=== PATIENT | female | born 2000 | race Caucasian/White ===

== ENCOUNTER 2023-02-06 12:59 | Emergency (ER) | payer BC, SELFPAY ==
[2023-02-06 13:08] VITALS: BP 132/77; PULSE 85; RESP 16; TEMP 37.1; O2SAT 95; BMI 34.8
[2023-02-06 13:26] LABS: Bilirubin Urine NEGATIVE (NEGATIVE); Blood Urine LARGE (NEGATIVE); Clarity Urine CLOUDY (CLEAR); Color Urine YELLOW (YELLOW); Glucose Urine UA NEGATIVE (NEGATIVE); Ketones Urine NEGATIVE (NEGATIVE); Leukocyte Esterase Urine MODERATE (NEGATIVE); Nitrite Urine POSITIVE (NEGATIVE); Protein Urine >=300 mg/dL (NEG/TRACE); Specific Gravity Urine >=1.030 (1.005-1.025); Urobilinogen Urine 0.2 EU/dL (0.2-1.0)
[2023-02-06 13:29] LABS: Urine Microscopic Indicated YES
[2023-02-06 13:29] LABS: HCG Qualitative Urine* NEGATIVE (NEGATIVE)
[2023-02-06 13:38] LABS: Bacteria Urine LARGE #/HPF (NONE SEEN); Cast Seen? NONE SEEN #/LPF (NONE SEEN); Crystals Seen? None Seen #/HPF (None Seen); Mucus Urine NONE SEEN (NONE SEEN); RBC Urine >100 #/HPF (0-2); Squamous Epithelial Cell Urine FEW #/LPF (NONE/RARE); Urine Culture Indicated YES; WBC Urine >100 #/HPF (NONE SEEN)
--- NOTE | 2023-02-06 13:47 | CT_ITS ---
The [address] [address] Patient Name: CLAUDIA MCKEON MRN: [id number] date: 2000 Sex: F Assigned Patient Location: ED.MAIN Current Patient Location: ER Accession/Order Number: [id number] Exam Date: 02/06/2023 15:48 Report Date: 02/06/2023 16:09 At the request of: BALA RINCON Procedure: CT abdomen pelvis wo con EXAM: CT abdomen pelvis wo con HISTORY: right abd pain COMPARISON: None. TECHNIQUE: Axial CT imaging was performed through the abdomen and pelvis without intravenous contrast. Multiplanar reformats were performed. Dose reduction techniques were achieved by using automated exposure control and/or adjustment of mA and/or kV according to patient size and/or use of iterative reconstruction technique. FINDINGS: Lung bases: Lung bases are clear. No pleural effusion. GI upper: Unremarkable. Liver: Normal size and contour. Gallbladder: No significant abnormality. No cholelithiasis. Biliary system: No intra or extrahepatic biliary ductal dilatation. Spleen: Normal size. Pancreas: Unremarkable. Adrenal glands: Normal adrenal glands. Kidneys/ureters: Normal contours. No hydronephrosis. No nephrolithiasis or ureterolithiasis. Vessels: No aneurysm. Lymph Nodes: There are prominent right lower abdomen mesenteric lymph nodes, nonspecific and may represent mesenteric adenitis. Small bowel: No wall thickening or dilatation. Colon: No wall thickening or dilatation. Appendix: Appendix is identified with normal appearance. Peritoneal cavity: No free fluid or pneumoperitoneum. Lower : Unremarkable. Bones: No acute bony abnormality. Soft tissues: No acute finding. Additional findings: None. CT/CT abdomen pelvis wo con IMPRESSION: prominent right lower abdomen mesenteric lymph nodes, nonspecific and may represent mesenteric adenitis. Electronically authenticated by: SERJIO FRAZIER Date: 02/06/2023 16:09
[2023-02-06 14:14] LABS: Basophils Absolute Auto 0.1 10^3/uL (0.0-0.1); Basophils Percent Auto 0.2 % (0.2-2.0); Eosinophils Percent Auto 0.1 % (0.9-7.0); Hematocrit 41.9 % (36.0-48.0); Hemoglobin 13.7 g/dL (12.0-16.0); Immature Granulocytes Abs Auto 0.11 10^3/uL (0.00-0.03); Immature Granulocytes Pct Auto 0.5 % (0.0-0.5); Lymphocytes Absolute Auto 2.3 10^3/uL (1.2-3.8); Mean Corpuscular HGB Conc 32.7 g/dL (29.9-35.2); Mean Corpuscular Hemoglobin 26.8 pg (26.7-34.0); Mean Platelet Volume 9.2 fL (9.5-13.5); Monocytes Percent Auto 4.6 % (1.7-12.0); Neutrophils Absolute Auto 17.6 10^3/uL (1.4-6.5); Neutrophils Percent Auto 83.6 % (43.0-75.0); Platelet Count 413 10^3/uL (150-450); Red Blood Count 5.11 10^6/uL (4.20-5.40); Red Cell Distribution Width 12.7 % (11.0-15.0); White Blood Count 21.1 10^3/uL (4.0-11.0)
[2023-02-06] MEDS: CIPROFLOXACIN HCL 500 MG TABLET PO (14:17)
[2023-02-06 14:23] LABS: Alanine Aminotransferase 23 U/L (14-59); Albumin Level 3.8 g/dL (3.4-5.0); Alkaline Phosphatase 83 U/L (46-116); Anion Gap 13.1; Aspartate Amino Transferase 14 U/L (15-37); BUN Creatinine Ratio 15.9; Bilirubin Total 0.3 mg/dL (0.2-1.0); Calcium 8.9 mg/dL (8.5-10.1); Chloride 103 mmol/L (98-107); Estimated GFR (African America >60 (>=60); Estimated GFR (Non-African Ame >60 (>=60); Globulin 4.4 g/dL; Glucose 93 mg/dL (74-106); Potassium 4.1 mmol/L (3.5-5.1); Sodium 139 mmol/L (136-145); Total Protein 8.2 g/dL (6.4-8.2)
--- NOTE | 2023-02-06 14:23 | ED.FEMALEGU1 ---
HPI - Female Genitourinary General Chief complaint: Urogenital-Female Stated complaint: UTI SYMPTOMS Time Seen by Provider: 02/06/23 13:35 Source: patient Mode of arrival: Wheelchair Limitations: no limitations History of Present Illness HPI Narrative: Is coming to us with 2 to 3 days history of right-sided lower abdominal pain associated with burning with urination as well as frequency as well as flank pain that started over the last 24 hours the patient mentioned that the pain is fixed, no nausea at the moment but she did have some vomiting in the last few days and the patient also mentioned that she have a history of congestive heart failure The patient denies any chills or any fever at the moment and she denies any blood in your Related Data Home Medications Medication Instructions Recorded Confirmed cetirizine 10 mg capsule (All Day 10 mg PO DAILY 02/06/23 02/06/23 Allergy (cetirizine)) metoprolol succinate 25 mg 37.5 mg PO BID 02/06/23 02/06/23 tablet,extended release 24 hr montelukast 10 mg tablet 10 mg PO DAILY 02/06/23 02/06/23 (Singulair) Previous Rx's Medication Instructions Recorded ciprofloxacin HCl 500 mg tablet 500 mg PO BID #14 tabs 02/06/23 dicyclomine 20 mg tablet 20 mg PO QID PRN abdominal pain 02/06/23 #10 tabs Allergies Allergy/AdvReac Type Severity Reaction Status Date / Time Gadolinium-Containing Allergy Severe Verified 02/06/23 13:06 Contrast Medi morphine Allergy Severe Verified 02/06/23 13:06 Review of Systems ROS Status of ROS 10 or more systems reviewed and unremarkable except as noted in history and below [facility] Medical History (Updated 02/06/23 @ 16:31 by Bhumi Fields MD) Asthma ?J45.909 - Unspecified asthma, uncomplicated (ICD-10) Heart failure as complication of care ?I50.9 - Heart failure, unspecified (ICD-10) Social History Smoking status: Never smoker Exam Narrative Exam Narrative: Nurses notes and vital signs reviewed and patient is not hypoxic. General: Well-appearing and in no apparent distress. Skin: Warm, dry, no pallor noted. No rash. Head: Normocephalic, atraumatic. Neck: Supple, non-tender. Eye: Pupils are equal, round and EOMI. No scleral icterus. Ears, Nose, Mouth, and Throat: TM are clear, no nasal mucosal hypertrophy. Oral mucosa is moist, no posterior oropharynx erythema, uvula is mid-line Cardiovascular: Regular Rate and Rhythm without murmur, gallop or rub. Respiratory: No accessory muscle use or respiratory distress. Lungs are clear to auscultation, no wheezing, rales or rhonchi Chest Wall: no tenderness Back: No midline thoracic or lumbar vertebral tenderness. No CVA tenderness Musculoskeletal: normal ROM, no calf or popliteal tenderness, no lower extremity edema/swelling GI: Abdomen is soft, non-distended. Normal bowel sounds. No masses appreciated. No tenderness to palpation. No rebound, guarding, or rigidity noted. Neurological: A&O x4. No cranial nerve dysfunction observed. No truncal ataxia. Moves all extremities. Sensation intact. Psychiatric: Cooperative and interactive. Normal mood and affect. Constitutional Vital Signs, click to edit/add: Last Vital Signs Temp 98.8 F 02/06/23 13:08 Pulse 85 02/06/23 13:08 Resp 16 02/06/23 13:08 BP 132/77 02/06/23 13:08 Pulse Ox 95 02/06/23 13:08 O2 Del Method Room Air 02/06/23 13:08 Course Vital Signs Vital signs: Vital Signs Temperature 98.8 F 02/06/23 13:08 Pulse Rate 85 02/06/23 13:08 Respiratory Rate 16 02/06/23 13:08 Blood Pressure 132/77 02/06/23 13:08 Pulse Oximetry 95 02/06/23 13:08 Oxygen Delivery Method Room Air 02/06/23 13:08 Temperature 98.8 F 02/06/23 13:08 Pulse Rate 85 02/06/23 13:08 Respiratory Rate 16 02/06/23 13:08 Blood Pressure 132/77 02/06/23 13:08 Pulse Oximetry 95 02/06/23 13:08 Oxygen Delivery Method Room Air 02/06/23 13:08 MDM - Female Genitourinary MDM Narrative Medical decision making narrative: The patient CBC shows some leukocytosis with mostly reactive due to the patient taking prednisone she recently has been getting better and getting treated for bronchitis The patient also had chemistry showing no acute significant pathology the CAT scan shows possible mesenteric adenitis which is mostly secondary to the patient's recent viral infection The patient right now will be treated with ciprofloxacin to go home with in addition to Bentyl The patient is to follow up with primary care physician in next 2-3 days or to return to the emergency department should any of the signs or symptoms worsen or new symptoms develop. The patient agrees with the following Diagnosis and Treatment plan and the patient will be discharged home. Lab Data Labs: Lab Results 02/06/23 02/06/23 02/06/23 Range/Units 13:15 13:17 14:00 WBC 21.1 H (4.0-11.0) 10^3/uL RBC 5.11 (4.20-5.40) 10^6/uL Hgb 13.7 (12.0-16.0) g/dL Hct 41.9 (36.0-48.0) % MCV 82.0 (81.0-99.0) fL MCH 26.8 (26.7-34.0) pg MCHC 32.7 (29.9-35.2) g/dL RDW 12.7 (11.0-15.0) % Plt Count 413 (150-450) 10^3/uL MPV 9.2 L (9.5-13.5) fL Neut % (Auto) 83.6 H (43.0-75.0) % Lymph % (Auto) 11.0 L (20.5-60.0) % [place] % (Auto) 4.6 (1.7-12.0) % Eos % (Auto) 0.1 L (0.9-7.0) % Baso % (Auto) 0.2 (0.2-2.0) % Neut # (Auto) 17.6 H (1.4-6.5) 10^3/uL Lymph # (Auto) 2.3 (1.2-3.8) 10^3/uL [place] # (Auto) 1.0 H (0.3-0.8) 10^3/uL Eos # (Auto) 0.0 (0.0-0.7) 10^3/uL Baso # (Auto) 0.1 (0.0-0.1) 10^3/uL Abs Immat Gran (auto) 0.11 H (0.00-0.03) 10^3/uL Imm/Tot Granulo (auto) 0.5 (0.0-0.5) % Sodium 139 (136-145) mmol/L Potassium 4.1 (3.5-5.1) mmol/L Chloride 103 (98-107) mmol/L Carbon Dioxide 27.0 (21.0-32.0) mmol/L Anion Gap 13.1 BUN 14.0 (7.0-18.0) mg/dL Creatinine 0.88 (0.55-1.02) mg/dL Est GFR ( Amer) >60 (>=60) Est GFR (Non-Af Amer) >60 (>=60) BUN/Creatinine Ratio 15.9 Glucose 93 (74-106) mg/dL Calcium 8.9 (8.5-10.1) mg/dL Total Bilirubin 0.3 (0.2-1.0) mg/dL AST 14 L (15-37) U/L ALT 23 (14-59) U/L Alkaline Phosphatase 83 (46-116) U/L Total Protein 8.2 (6.4-8.2) g/dL Albumin 3.8 (3.4-5.0) g/dL Globulin 4.4 g/dL Albumin/Globulin Ratio 0.9 Urine Color Yellow (YELLOW) Urine Clarity Cloudy A (CLEAR) Urine pH 6.0 (5.0-9.0) Ur Specific [place] >=1.030 A (1.005-1.025) Urine Protein >=300 A (NEG/TRACE) mg/dL Urine Glucose (UA) Negative (NEGATIVE) mg/dL Urine Ketones Negative (NEGATIVE) mg/dL Urine Occult Blood Large A (NEGATIVE) Urine Nitrite Positive A (NEGATIVE) Urine Bilirubin Negative (NEGATIVE) Urine Urobilinogen 0.2 (0.2-1.0) EU/dL Ur Leukocyte Esterase Moderate A (NEGATIVE) Urine RBC >100 A (0-2) #/HPF Urine WBC >100 A (NONE SEEN) #/HPF Ur Squamous Epith Cells Few A (NONE/RARE) #/LPF Urine Crystals None seen (None Seen) #/HPF Urine Bacteria Large A (NONE SEEN) #/HPF Urine Casts None seen (NONE SEEN) #/LPF Urine Mucus None seen (NONE SEEN) Ur Culture Indicated? Yes Urine HCG, Qual Negative (NEGATIVE) Discharge Plan Discharge Chief Complaint: Urogenital-Female Clinical Impression: Urinary tract infection, Post viral syndrome Patient Disposition: Home, Self-Care Time of Disposition Decision: 16:29 Condition: Good Prescriptions / Home Meds: New ciprofloxacin HCl 500 mg tablet 500 mg PO BID Qty: 14 0RF dicyclomine 20 mg tablet 20 mg PO QID PRN (Reason: abdominal pain) Qty: 10 0RF No Action metoprolol succinate 25 mg tablet extended release 24 hr 37.5 mg PO BID montelukast [Singulair] 10 mg tablet 10 mg PO DAILY All Day Allergy (cetirizine) 10 mg capsule 10 mg PO DAILY Instructions: Urinary Tract Infection in Women (ED) Stand Alone Forms: Portal Instructions Referrals: Melanie Hollis MD [Primary Care Provider] - 1 week
[2023-02-06 14:24] LABS: Albumin Globulin Ratio 0.9
[2023-02-06 16:45] VITALS: BP 109/68; PULSE 89; RESP 12; TEMP 36.9; O2SAT 94
[2023-02-06] MEDS: KETOROLAC TROMETHAMINE 30 MG/ML VIAL 15 MG IVP (17:00)
== END 2023-02-06 17:05 | disposition home or self-care (01) ==
PROVIDERS: Emergency Provider Emergency Medicine; PCP Family Medicine
DX: N39.0 Urinary tract infection, site not specified (principal); G93.31 Postviral fatigue syndrome; Z79.899 Other long term (current) drug therapy; J45.909 Unspecified asthma, uncomplicated; I50.9 Heart failure, unspecified
CPT/HCPCS: 36415; 74176; 80053; 81001; 84703; 85025; 87086; 87150; 87186; 96374; 99285

== ENCOUNTER 2023-11-28 18:39 | Outpatient (REF) | payer BC, SELFPAY ==
[2023-12-01 12:11] LABS: Age Gdln ACOG Testing Note (.); IGP, rfx Aptima HPV ASCU Note (.)
== END 2023-11-28 18:40 | disposition home or self-care (01) ==
LOC: LAB 18:39
PROVIDERS: PCP Family Medicine; Visit Provider Physician Assistant
DX: Z01.419 Encounter for gynecological examination (general) (routine) without abnormal findings (principal)
CPT/HCPCS: 88175

== ENCOUNTER 2024-11-29 15:24 | Outpatient (REF) | payer BC, SELFPAY ==
--- OUTSIDE RECORDS SUMMARY | 2024-11-29 09:00 | XMS_ITS | Encounter Summary ---
Author Organization [facility] Address [address] [place] [address] Care Team Providers Care Public Affairs Manager Name Role Phone Jessica Acuña DO Unavailable [phone] Melanie Hollis MD Primary Care Provider [phone] Reason for Visit * Reason Comments Well Women Visit Encounter Details Date Type Department Care Team (Late st Contact Info) Description 11/29/2024 9:00 AM EDT Office Visit [facility] [address] [place] [id number] Amelia De Guzman, DO [address] [facility] [address] [place], [place] [id number] Well woman exam with routine gynecological exam; Irregular periods/menstrual cycles Social History Tobacco Use Types Packs/Day Years Used Date Smoking Tobacco: Never Smokeless Tobacco: Never Alcohol Use Standard Drinks/Week Comments Yes 2 (1 standard drink = 0.6 oz pur e alcohol) Comments No Sex and Gender Information Value Date Recorded Sex Assigned at Not on file Legal Sex Female 10:30 AM EDT Gender Identity Not on file Sexual Orientation Not on file documented as of this encounter Last Filed Vital Signs Vital Sign Reading Time Taken Comments Blood Pressure 122/80 11/29/2024 9:13 AM EDT Pulse - - Temperature - - Respiratory Rate - - Oxygen Saturation - - Inhaled Oxygen Concentration - - Weight 106 kg (233 lb) 11/29/2024 9:13 AM EDT Height 157.5 cm (5' 2 ) 11/29/2024 9:13 AM EDT Body Mass Index 42.62 11/29/2024 9:13 AM EDT documented in this encounter Progress Notes * Margoth Shen, YOUTH SUPPORT WORKER - 11/29/2024 9:00 AM EDT Reason for Appointment: Patient ID: Mayra Lee is a 23 y.o. female who presents for Well Women Visit Patient presents today for Annual Exam. MEDICATIONS Current Outpatient Medications Medication Instructions albuterol HFA 90 mcg/act inhaler 2 puffs, Inhalation, Every 4 hours PRN albuterol 2.5 mg, Inhalation, Daily PRN ASHWAGANDHA PO Take by mouth cetirizine (ZYRTEC) 10 mg, Oral, Daily RT metoprolol tartrate (LOPRESSOR) 50 mg, Daily montelukast (SINGULAIR) 10 mg, Oral, Nightly MV-Min-Fe Fum-FA-DHA ( 1 PO) Take by mouth ALLERGIES Allergies Allergen Reactions Gadobutrol Cough, Itching and Wheezing Brief tongue/mouth itching immediately following gadavist injection. Resolved within a few seconds.Coughing and mild wheezing reported by pt after itching resolved. Iodinated Contrast Media Other Reaction(s): contrast dye Other Unknown Watering eyes, sneezing, congestion Prednisone GI bleeding Morphine Hives, Itching and Rash PROBLEMS Active Ambulatory Problems Diagnosis Date Noted No Active Ambulatory Problems Resolved Ambulatory Problems Diagnosis Date Noted No Resolved Ambulatory Problems Past Medical History: Diagnosis Date Asthma (HCC) Seasonal allergies Tachycardia Urinary tract infection 07/2021 & 01/2023 HISTORY PAST MEDICAL HISTORY SOCIAL HISTORY Past Medical History: Diagnosis Date Asthma (HCC) Seasonal allergies Tachycardia Urinary tract infection 07/2021 & 01/2023 Social History Tobacco Use Smoking status: Never Smokeless tobacco: Never Substance Use Topics Alcohol use: Yes Alcohol/week: 2.0 standard drinks of alcohol Types: 2 Glasses of wine per week Drug use: Never FAMILY HISTORY Family History Problem Relation Name Age of Onset Diabetes Paternal Grandmother Emma Sinharado Heart failure Paternal Grandmother Emma Ania Hypertension Paternal Grandmother Emma Sinharado SURGICAL HISTORY Past Surgical History: Procedure Laterality Date KNEE SURGERY Left 2017 WISDOM TOOTH EXTRACTION 2019 REVIEW OF SYSTEMS Review of Systems: Review of Systems Constitutional: Negative. HENT: Negative. Eyes: Negative. Respiratory: Negative. Cardiovascular: Negative. Gastrointestinal: Negative. Genitourinary: Positive for menstrual problem. Musculoskeletal: Negative. Skin: Negative. Neurological: Negative. All other systems reviewed and are negative. Hematological: Negative. Endocrine: Negative. Allergic/Immunologic: Negative. OBJECTIVE Objective: OBGyn Exam Vitals: Estimated body mass index is 42.62 kg/m?? as calculated from the following: Height as of this encounter: 5' 2 . Weight as of this encounter: 233 lb. BP: 122/80 Patient's last menstrual period was 11/04/2024 (exact date). ASSESSMENT & PLAN ICD-10-CM 1. Well woman exam with routine gynecological exam Z01.419 Pap Smear 2. Irregular periods/menstrual cycles N92.6 Annual Exam: Patient presents today for an annual exam. Patient states she is doing well and has complaints irregular cycles and trying to conceive for the past 9 months. Pap was obtained without difficulty. Patient will have labs ordered and obtain ultrasound. Discussed weight management as well with Metforminand Adipex. Patient would like to talk with spouse again and will return to clinic to review US andlabs. Follow Up: Patient is to return in one year for annual unless needed otherwise. Patient to return to clinic in4 weeks for review of labs and see if patient desires weight management or fertility. Documented by Margoth Shen LPN on behalf of: Amelia De Guzman DO documented in this encounter Miscellaneous Notes * Addendum Note - Amelia De Guzman DO - 11/29/2024 9:00 AM EDTAddended by: AMELIA DE GUZMAN on: 11/29/2024 10:21 AM Modules accepted: Level of Service documented in this encounter Plan of Treatment Upcoming Encounters Date Type Department Care Team (Late st Contact Info) Description 12/17/2024 11:00 AM EDT Ancillary Procedure [place] [address] 12/31/2024 8:40 AM EDT Office [place] [address] [address] Guzman DO [facility] [place] [address] 12/03/2025 2:00 PM EDT Procedure Visit [facility] [address] [facility] [place] [id number] Amelia De Guzman, DO [address] [facility] [place] [address] Scheduled Orders Name Type Priority Associated Diagnoses Orde r Schedule Pap Smear Pathology and Cytology Routine Well woman exam with routine gynecological exam Ordered: 11/29/2024 hCG, quantitative, Lab Routine Irregular periods/menstrual cycles Ordered: 11/29/2024 TSH Lab Routine Irregular periods/menstrual cycles Ordered: 11/29/2024 T4, free Lab Routine Irregular periods/menstrual cycles Ordered: 11/29/2024 CBC and differential Lab Routine Irregular periods/menstrual cycles Ordered: 11/29/2024 Follicle stimulating hormone Lab Routine Irregular periods/menstrual cycles Ordered: 11/29/2024 Luteinizing hormone Lab Routine Irregular periods/menstrual cycles Ordered: 11/29/2024 Hemoglobin A1c Lab Routine Irregular periods/menstrual cycles Ordered: 11/29/2024 DHEA-sulfate Lab Routine Irregular periods/menstrual cycles Ordered: 11/29/2024 DHEA Lab Routine Irregular periods/menstrual cycles Expected: 11/29/2024 (Approximate), Expires: 11/29/2025 US Pelvis w/ TV Imaging Routine Irregular periods/menstrual cycles Expected: 11/29/2024, Expires: 11/29/2025 Antimullerian hormone (AMH) Lab Routine Irregular periods/menstrual cycles Expected: 11/29/2024 (Approximate), Expires: 11/29/2025 documented as of this encounter Visit Diagnoses Diagnosis Well woman exam with routine gynecological exam Routine gynecological examination Irregular periods/menstrual cycles documented in this encounter Care Teams Public Affairs Manager Relationship Specialty Start Date End Date Melanie Hollis MD PCP - General Family Medicine 11/28/23 Jessica Acuña DO Family Medicine 11/30/22 documented as of this encounter
--- OUTSIDE RECORDS SUMMARY | 2024-11-29 15:28 | XMS_ITS | Clinical Summary ---
Author Organization [facility] Address [address] [place] [address] [place] [address] Care Team Providers Care Metal Burrer Name Role Phone Melanie Hollis MD Primary Care Provider [phone] Allergies Active Allergy Reactions Criticality Noted Date Comments Gadobutrol Itching,Wheezing,Cough Medium 08/06/2021 Brief tongue/mouth itching immediately following gadavist injection. Resolved within a few seconds. Coughing and mild wheezing reported by pt after itching resolved. Morphine Hives,Itching,Rash 04/16/2021 Medications montelukast 10 MG tabletIndicatio ns:Sinus tachycardia,Syn cope and collapse Take 1 tablet by mouth daily. Active cetirizine 10 MG tabletIndicatio ns:Sinus tachycardia,Syn cope and collapse Take 1 tablet by mouth daily. Active albuterol (2.5 MG/3ML) 0.083% inhalation solution Take 3 mL by nebulization daily as needed. 2 Active albuterol 108 (90 Base) MCG/ACT Aero Soln inhaler Inhale 2 puffs every 4 hours as needed. 2 Active Metoprolol succinate 50 MG tablet XLIndications:P alpitations,Sin us tachycardia TAKE 1 TABLET BY MOUTH TWICE A DAY WITH MEALS (INCREASED DOSE) 180 tablet 3 5 Active Active Problems Problem Noted Date Diagnosed Date Inappropriate sinus tachycardia 09/06/2022 Encounters Date Type Department Care Team Description 10/18/2024 1:45 PM EDT Office Visit [facility] Faheem [facility] [address] [place] [address] Ciro Spicer MD [place], Mary B BRIDGE TENDER-MANAGER ERP Sinus tachycardia (Primary Dx) 10/10/2024 Telephone [facility] [address] [place] [phone] Yessica Ramirez Appointment from Last 3 Months Family History Medical History Relation Name Comments Lipid Disorder Father Diabetes Mother Relation Name Status Comments Father Mother Social History Tobacco Use Types Packs/Day Years Used Date Smoking Tobacco: Never Smokeless Tobacco: Never Alcohol Use Standard Drinks/Week Comments Not Currently 0 (1 standard drink = 0.6 oz pur e alcohol) Comments No Sex and Gender Information Value Date Recorded Sex Assigned at Not on file Legal Sex Female 3:54 PM EST Gender Identity Female 01/21/2022 9:26 AM EDT Sexual Orientation Straight 01/21/2022 9: 26 AM EDT Last Filed Vital Signs Vital Sign Reading Time Taken Comments Blood Pressure 130/71 10/18/2024 1:47 PM EDT Pulse 81 10/18/2024 1:47 PM EDT Temperature - - Respiratory Rate 16 10/18/2024 1:45 PM EDT Oxygen Saturation 96% 10/18/2024 1:45 PM EDT Inhaled Oxygen Concentration - - Weight 104.8 kg (231 lb) 10/18/2024 1:45 PM EDT Height 157.5 cm (5' 2 ) 10/18/2024 1:45 PM EDT Body Mass Index 42.25 10/18/2024 1:45 PM EDT Plan of Treatment Upcoming Encounters Date Type Department Care Team (Late st Contact Info) Description 04/18/2025 2:45 PM EST Office Visit [facility] [address] [place] [phone] Ciro Spicer MD [address] [place] [phone] Health Maintenance Due Date Last Done Comments GONORRHEA SCREEN 2000 HEPATITIS C VIRUS SCREENING 2000 HIV SCREENING DISCUSSION 12/16/2015 HPV VACCINE ADOL (1 - 3-dose series) 12/16/2015 HPV VACCINE (1 - 3-dose series) 12/16/2015 CHLAMYDIA SCREEN 2016 CERVICAL CANCER SCREENING DISCUSSION 2021 COVID-19 VACCINE (3 - 4-2 5 season) 2024 05/11/2021, 02/04/2021 INFLUENZA VACCINE (#1) 2025 , 02/11/2022 TETANUS 04/08/2033 04/08/2023, 04/08/2023, 04/17/2013 HEP B VACCINE Completed 07/12/2001, 02/24/2001, 2000 TDAP (ADULT) Completed 04/08/2023, 04/08/2023, 04/17/2013 PNEUMOCOCCAL VACCINE SERIES Aged Out No longer eligible based on patient's age to complete this topic Insurance [facility] Care Teams Metal Burrer Relationship Specialty Start Date End Date Melanie Hollis MD PCP - General Family Medicine 06/25/21
--- OUTSIDE RECORDS SUMMARY | 2024-11-29 15:28 | XMS_ITS | Encounter Summary ---
Author Organization [facility] Address [address] [facility] [place] [address] Care Team Providers Care Teacher Vocal Name Role Phone Jessica Acuña DO Unavailable [phone] Monroe Mariano DO Unavailable [phone] Melanie Hollis MD Primary Care Provider [phone] Encounter Details Date Type Department Care Team (Late st Contact Info) Description 12/06/2023 Orders Only [facility] [place] [address] Felicitas Weir [address] [place] [address] Social History Tobacco Use Types Packs/Day Years [...] on file documented as of this encounter Plan of Treatment Upcoming Encounters Date Type Department Care Team (Late st Contact Info) Description 12/17/2024 11:00 AM EDT Ancillary Procedure [facility] [place] [address] 12/31/2024 8:40 AM EDT Office Visit [facility] [place] [address] Zachery De Guzman [address] [place], [place] [id number] 12/03/2025 2:00 PM EDT Procedure Visit [facility] [address] [facility] [place] [address] Zachery De Guzman DO [address] [facility] [place] [address] documented as of this encounter Procedures Procedure Name Priority Date/Time Associated Diagnosis Comments PAP SMEAR Routine 11/28/2023 12:00 AM EDT documented in this encounter Results * Pap Smear (11/28/2023 12:00 AM EDT) Swab Cervical swab / Unknown [facility] CYTOLOGY ORDERABLES Final Re sult EXTERNAL LAB documented in this encounter Visit Diagnoses Not on filedocumented in this encounter Care Teams Teacher Vocal Relationship Specialty Start Date End Date Monroe Mariano DO [address] [place] [address] [address] PCP - [facility] 02/06/23 Melanie Hollis MD [address] [place] [address] [address] PCP - General Family Medicine 11/28/23 Jessica Acuña DO Family Medicine 11/30/22 documented as of this encounter
--- OUTSIDE RECORDS SUMMARY | 2024-11-29 15:28 | XMS_ITS | Encounter Summary ---
Author Organization [facility] Address [address] [facility] [place] [address] Care Team Providers Care Hospitality Director Name Role Phone Jessica Acuña DO Unavailable [phone] Monroe Mariano DO Unavailable [phone] Melanie Hollis MD Primary Care Provider [phone] Encounter Details Date Type Department Care Team (Late st Contact Info) Description 12/06/2023 Abstract [facility] [address] [place] [address] Mala Curran PA [address] [place] [address] [address] [place], [place] [address] Social History Tobacco Use Types Packs/Day Years [...] 12/17/2024 11:00 AM EDT Ancillary Procedure [facility] [place] [address] [place] [address] 12/31/2024 8:40 AM EDT Office Visit [facility] [address] [place] [address] Zachery De Guzman DO [address] [place] [address] 12/03/2025 2:00 PM EDT Procedure Visit [facility] [address] [facility] [address] Zachery De Guzman DO [address] [facility] [address] [place], [place] [id number] documented as of this encounter Visit Diagnoses Not on filedocumented in this encounter Care Teams Hospitality Director Relationship Specialty Start Date End Date Monroe Mariano DO [address] [place] [address] PCP - [employer] 02/06/23 Melanie Hollis MD [address] [place] [address] PCP - General Family Medicine 11/28/23 Jessica Acuña DO Family Medicine 11/30/22 documented as of this encounter
--- OUTSIDE RECORDS SUMMARY | 2024-11-29 15:28 | XMS_ITS | Encounter Summary ---
Author Organization [facility] Address [address] [facility] [place] [address] Care Team Providers Care Software Packaging Engineer Name Role Phone Jessica Acuña DO Unavailable [phone] Melanie Hollis MD Primary Care Provider [phone] Encounter Details Date Type Department Care Team (Latest Contact Info) Description 11/28/2024 Travel Social History Tobacco Use Types Packs/Day Years [...] Encounters Date Type Department Care Team (Late Contact Info) Description 12/17/2024 11:00 AM EDT Ancillary Procedure [facility] [address] [place] [address] 12/31/2024 8:40 AM EDT Office Visit [facility] OB [facility] [place] [address] Zachery De Guzman DO [address] [place], [place] [address] 12/03/2025 2:00 PM EDT Procedure Visit [facility] [address] [place] [address] Zachery De Guzman, [address] [place] [address] documented as of this encounter Visit Diagnoses Not on filedocumented in this encounter Care Teams Software Packaging Engineer Relationship Specialty Start Date End Date Melanie Hollis MD PCP - General Family Medicine 11/28/23 Jessica Acuña DO Family Medicine 11/30/22 documented as of this encounter
--- OUTSIDE RECORDS SUMMARY | 2024-11-29 15:28 | XMS_ITS | Encounter Summary ---
Author Organization [facility] Address [address] [facility] [place] [address] Care Team Providers Care Business Education Professor Name Role Phone Jessica Acuña DO Unavailable [phone] Melanie Hollis MD Primary Care Provider [phone] Encounter Details Date Type Department Care Team (Late Contact Info) Description 11/29/2024 Bamboo flowsheet [facility] OB [address] [facility] [place] [address] Zachery De Guzman [facility] [place], [place] [address] Social History Tobacco Use Types Packs/Day Years [...] 12/17/2024 11:00 AM EDT Ancillary Procedure [facility] [place] [address] [place] [address] 12/31/2024 8:40 AM EDT Office Visit [facility] OB [facility] [place] [address] Zachery De Guzman [facility] [place] [address] 12/03/2025 2:00 PM EDT Procedure Visit [facility] OB [address] [facility] [place] [address] Zachery De Guzman DO [address] [facility] [place] [address] documented as of this encounter Visit Diagnoses Not on filedocumented in this encounter Care Teams Business Education Professor Relationship Specialty Start Date End Date Melanie Hollis MD PCP - General Family Medicine 11/28/23 Jessica Acuña DO Family Medicine 11/30/22 documented as of this encounter
[2024-12-03 18:08] LABS: Age Gdln ACOG Testing Note (.); IGP, rfx Aptima HPV ASCU Note (.)
== END 2024-11-29 15:25 | disposition home or self-care (01) ==
LOC: LAB 15:24
PROVIDERS: PCP Family Medicine; Visit Provider Obstetrics & Gynecology
DX: Z01.419 Encounter for gynecological examination (general) (routine) without abnormal findings (principal)
CPT/HCPCS: 88175

== ENCOUNTER 2024-12-07 13:11 | Outpatient (OUT) | payer BC, SELFPAY ==
[2024-12-07 14:01] LABS: Hematocrit 43.1 % (36.0-48.0); Hemoglobin 14.1 g/dL (12.0-16.0); Immature Granulocytes Abs Auto 0.03 10^3/uL (0.00-0.03); Immature Granulocytes Pct Auto 0.3 % (0.0-0.5); Lymphocytes Absolute Auto 2.2 10^3/uL (1.2-3.8); Mean Corpuscular HGB Conc 32.7 g/dL (29.9-35.2); Mean Corpuscular Hemoglobin 26.9 pg (26.7-34.0); Mean Corpuscular Volume 82.3 fL (81.0-99.0); Platelet Count 324 10^3/uL (150-450); Red Blood Count 5.24 10^6/uL (4.20-5.40); White Blood Count 9.0 10^3/uL (4.0-11.0)
[2024-12-07 14:16] LABS: Thyroid Stimulating Hormone 1.380 uIU/mL (0.358-3.740)
[2024-12-08 04:07] LABS: FSH 2.4 mIU/mL (.)
[2024-12-14 00:07] LABS: DHEA, Serum 550 ng/dL (31-701)
== END 2024-12-07 13:12 | disposition home or self-care (01) ==
LOC: LAB 13:17
PROVIDERS: PCP Family Medicine; Visit Provider Obstetrics & Gynecology
DX: N92.6 Irregular menstruation, unspecified (principal)
CPT/HCPCS: 36415; 82397; 82626; 82627; 83001; 83002; 83036; 84439; 84443; 84702; 85025

== ENCOUNTER 2025-02-11 08:34 | Outpatient (OUT) | payer BC, SELFPAY ==
--- NOTE | 2025-02-11 08:38 | US_ITS ---
The [address] [address] Patient Name: CLAUDIA RODRIGUEZ MRN: [id number] date: 2000 Sex: F Assigned Patient Location: US Current Patient Location: US Accession/Order Number: [id number] Exam Date: 02/11/2025 08:40 Report Date: 02/11/2025 10:16 At the request of: REINA BARDALES Procedure: US pelvis w/ transvaginal Pelvic ultrasound. Reason for exam: Follow-up left ovarian cyst Comparison: Ultrasound 12/17/2024 Technique: Transabdominal imaging of the uterus and ovaries was performed. Transvaginal imaging of the uterus and ovaries was also obtained. Additional spectral Doppler analysis of the ovaries was also obtained. Findings: Uterus measures 8.2 x 3.0 x 4.0 cm. No measurable fibroid. Endometrium measures 5 mm without focal abnormality. Right ovary measures 2.8 x 1.2 x 2.9 cm. Left ovary measures 4.7 x 4.3 x 4.2 cm. Normal arterial and venous Doppler waveforms. Left ovarian cyst measuring 3.4 cm. US/US pelvis w/ transvaginal Impression: Left ovarian cyst 3.4 cm. No follow-up imaging is recommended. Impression dictated by: Kan Richard Jr., D.O. 02/11/2025 10:16 AM Dictation Location: [place] [address] Electronically authenticated by: [id number] Y Date: 02/11/2025 10:16
--- OUTSIDE RECORDS SUMMARY | 2025-02-11 08:40 | XMS_ITS | Encounter Summary ---
Author Organization [facility] Address [address] [facility] [place] [address] Care Team Providers Care Printed Circuit Boards Beveler Name Role Phone Jessica Acuña DO Unavailable [phone] Monroe Mariano DO Unavailable [phone] Melanie Hollis MD Primary Care Provider [phone] Encounter Details Date Type Department Care Team (Late Contact Info) Description 12/06/2023 Orders Only [facility] [address] [place] [address] [place], [place] [address] [place] [address] Social History Tobacco Use Types Packs/Day Years [...] Care Team (Late st Contact Info) Description 12/03/2025 2:00 PM EDT Procedure Visit [facility] Brenda [place] [address] [place] [address] Zachery De Guzman DO [address] [place], [place] [address] documented as of this encounter Procedures Procedure Name Priority Date/Time Associated Diagnosis Comments PAP SMEAR Routine 11/28/2023 12:00 AM EDT documented in this encounter Results * Pap Smear (11/28/2023 12:00 AM EDT) Swab Cervical swab / Unknown Mala ALBARADO LAB CYTOLOGY ORDERABLES Final Re sult EXTERNAL LAB documented in this encounter Visit Diagnoses Not on filedocumented in this encounter Care Teams Printed Circuit Boards Beveler Relationship Specialty Start Date End Date Monroe Mariano DO [address] [place] [address] PCP - Francoise [facility] 02/06/23 Melanie Hollis MD [address] [place] [address] PCP - General Family Medicine 11/28/23 Jessica Acuña DO Family Medicine 11/30/22 documented as of this encounter
--- OUTSIDE RECORDS SUMMARY | 2025-02-11 08:40 | XMS_ITS | Encounter Summary ---
Author Organization [facility] Address [address] [facility] [place] [address] Care Team Providers Care Line Welder Name Role Phone Jessica Acuña DO Unavailable [phone] Melanie Hollis MD Primary Care Provider [phone] Encounter Details Date Type Department Care Team (Late Contact Info) Description 12/05/2024 Orders Only [facility] [place] [address] Juan Carlos Ailey, [place] Social History Tobacco Use Types Packs/Day Years [...] Department Care Team (Late Contact Info) Description 12/03/2025 2:00 PM EDT Procedure Visit [facility] [address] [place] [address] Zachery De Guzman DO [address] [place], [place] [address] documented as of this encounter Procedures Procedure Name Priority Date/Time Associated Diagnosis Comments PAP SMEAR Routine 11/29/2024 12:00 AM EDT documented in this encounter Results * Pap Smear (11/29/2024 12:00 AM EDT) Swab Cervical swab / Unknown us Zachery De Guzman DO LAB CYTOLOGY ORDERABLES Final Re sult EXTERNAL LAB documented in this encounter Visit Diagnoses Not on filedocumented in this encounter Care Teams Line Welder Relationship Specialty Start Date End Date Melanie Hollis MD PCP - General Family Medicine 11/28/23 Jessica Acuña DO Family Medicine 11/30/22 documented as of this encounter
--- OUTSIDE RECORDS SUMMARY | 2025-02-11 08:40 | XMS_ITS | Encounter Summary ---
Author Organization [facility] Address [address] [facility] [place] [address] Care Team Providers Care Business Process Analyst Name Role Phone Jessica Acuña DO Unavailable [phone] Monroe Mariano DO Unavailable [phone] Melanie Hollis MD Primary Care Provider [phone] Encounter Details Date Type Department Care Team (Late st Contact Info) Description 12/06/2023 Abstract [facility] [place] [address] [facility] [place] [address] Mala Curran PA [address] [facility] [address] [place], [facility] Social History Tobacco Use Types Packs/Day Years [...] Description 12/03/2025 2:00 PM EDT Procedure Visit [facility] [address] [place], [place] [address] [place] [address] Zachery De Guzman DO [address] [place], [facility] documented as of this encounter Visit Diagnoses Not on filedocumented in this encounter Care Teams Business Process Analyst Relationship Specialty Start Date End Date Monroe Mariano DO [address] [address] [facility]/06[facility]23 Melanie Hollis MD [address] [place] [address] [place] [address] PCP - General Family Medicine 11/28/23 Jessica Acuña DO Family Medicine 11/30/22 documented as of this encounter
--- OUTSIDE RECORDS SUMMARY | 2025-02-11 08:40 | XMS_ITS | Clinical Summary ---
Author Organization [facility] Address [address] [place] [address] Care Team Providers Care Coffee Urn Attendant Name Role Phone Jessica Acuña DO Unavailable [phone] Melanie Hollis MD Primary Care Provider [phone] Allergies Active Allergy Reactions Criticality Noted Date Comments Amoxicillin 12/31/2024 Gadobutrol Cough,Itching,Wheez ing Medium 08/06/2021 Brief tongue/mouth itching immediately following gadavist injection. Resolved within a few seconds. Coughing and mild wheezing reported by pt after itching resolved. Other Reaction(s): Other (See Comments), Wheezing Brief tongue/mouth itching immediately following gadavist injection. Resolved within a few seconds. Coughing and mild wheezing reported by pt after itching resolved. Brief tongue/mouth itching immediately following gadavist injection. Resolved within a few seconds. Coughing and mild wheezing reported by pt after itching resolved. Iodinated Contrast Media 07/11/2023 Other Reaction(s): contrast dye Morphine Hives,Itching,Rash Low 04/16/2021 Other Unknown 09/11/2015 Watering eyes, sneezing, congestion Prednisone GI bleeding 10/30/2023 Shellfish Protein-Containing Drug Products Hives 12/31/2024 Medications montelukast (Singulair) 10 MG tablet Take 10 mg by mouth at bedtime. Active cetirizine (ZyrTEC) 10 MG tablet Take 10 mg by mouth in the morning. Active albuterol (2.5 MG/3ML) 0.083% nebulizer solution Inhale 2.5 mg Daily as needed. 01/17/2022 Active albuterol HFA 90 mcg/act inhaler Inhale 2 puffs every 4 (four) hours if needed. 01/17/2022 Active metoprolol tartrate (Lopressor) 50 MG tablet Take 50 mg by mouth Daily Active MV-Min-Fe Fum-FA-DHA ( 1 PO) Take by mouth Active ASHWAGANDHA PO Take by mouth Active metFORMIN XR (Glucophage-XR) 500 MG 24 hr tabletIndication s:Irregular periods/menstrua l cycles Take 1 tablet (500 mg) by mouth in the evening. Take with meals Do not crush, chew, or split. 30 tablet 11 11/29/2024 Active letrozole (Femara) 2.5 MG chemo tabletIndication s:Irregular periods/menstrua l cycles,Cyst of ovary, unspecified laterality Take 1 tablet (2.5 mg total) by mouth Daily for 5 days. 5 tablet 01/22/2025 01/28/20 Encounters Date Type Department Care Team Description 01/22/2025 Telephone [facility] [address] [place] [address] Margoth Shen LPN 01/22/2025 Telephone [facility] [address] [facility] [place] [address] Felicitas Weir MA 12/31/2024 8:40 AM EDT [place] [address] Zachery De Guzman DO Cyst of ovary, unspecified laterality (Primary Dx); Encounter to discuss test results; Irregular periods/menstrual cycles 12/31/2024 Bamboo flowsheet [facility] [address] [place] [address] Zachery De Guzman DO 12/17/2024 11:00 AM EDT Ancillary Procedure [facility] [address] [place] [address] Irregular periods/menstrual cycles 12/17/2024 Travel 12/07/2024 Clinisync Result Encounter [facility] External Department Unsolicited Zachery De Guzman, 12/05/2024 Orders Only [facility] [address] [address] [facility] [place] [address] Paola Rangel MA 11/29/2024 9:00 AM EDT Office Visit [facility] [address] [place] [address] Zachery De Guzman, DO Well woman exam with routine gynecological exam; Irregular periods/menstrual cycles 11/29/2024 Clinisync Result Encounter [facility] External Department Unsolicited Zachery De Guzman, 11/29/2024 Bamboo flowsheet [facility] [address] [facility] [place] [address] Zachery De Guzman, 11/28/2024 Travel from Last 3 Months Family History Medical History Relation Name Comments Diabetes Paternal Grandmother Emma Emersono Heart failure Paternal Grandmother Emma Ania Hypertension Paternal Grandmother Emma Emersono Relation Name Status Comments Paternal Grandmother Emma Jorge Social History Tobacco Use Types Packs/Day Years Used Date Smoking Tobacco: Never Smokeless Tobacco: Never Tobacco Cessation:Counseling Given: Not Answered Alcohol Use Standard Drinks/Week Comments Yes 2 (1 standard drink = 0.6 oz pur e alcohol) Comments No Sex and Gender Information Value Date Recorded Sex Assigned at Not on file Legal Sex Female 10:30 AM EDT Gender Identity Not on file Sexual Orientation Not on file Last Filed Vital Signs Vital Sign Reading Time Taken Comments Blood Pressure 122/74 12/31/2024 8:52 AM EDT Pulse 78 11/21/2023 6:05 PM EDT Temperature 36.2 C (97.2 F) 11/21/2023 6:05 PM EDT Respiratory Rate 18 11/21/2023 6:05 PM EDT Oxygen Saturation 98% 11/30/2022 10:42 AM EDT Inhaled Oxygen Concentration - - Weight 105 kg (232 lb) 12/31/2024 8:52 AM EDT Height 157.5 cm (5' 2 ) 12/31/2024 8:52 AM EDT Body Mass Index 42.43 12/31/2024 8:52 AM EDT Plan of Treatment Upcoming Encounters Date Type Department Care Team (Late st Contact Info) Description 12/03/2025 2:00 PM EDT Procedure Visit [facility] [address] [place] [address] Zachery De Guzman, [address] [place] [address] Health Maintenance Due Date Last Done Comments Influenza Vaccine (#1) 2025 02/10/2024, 2022, 02/11/2022 Procedures Procedure Name Priority Date/Time Associated Diagnosis Comments US PELVIC COMPLETE W/ TV Routine 025 11:22 AM EDT Irregular periods/menstrua l cycles ALL DEHYDROEPIANDROSTERONE Routine 12/07 1:32 PM EDT ALL ANTI-MULLERIAN HORMONE Routine 12/07 1:32 PM EDT ALL FOLLICLE STIMULATING HORMONE Routine 12/07/2024 1:32 PM EDT ALL LUTEINIZING HORMONE Routine 12/08/19 25 1:32 PM EDT ALL DHEA SULFATE Routine 12/07/2024 1:32 PM EDT TBH PREG QUANT HCG Routine 12/07/2024 1: 32 PM EDT ALL THYROID STIM HORMONE Routine 025 1:32 PM EDT MLR HEMOGLOBIN A1C Routine 12/07/2024 1: 32 PM EDT ALL THYROXINE (T4) FREE Routine 12/08/19 25 1:32 PM EDT ALL CBC WITH AUTO DIFF Routine 5 1:32 PM EDT IGP,APTIMA HPV,AGE GDLN Routine 11/30/19 9:01 AM EDT PAP SMEAR Routine 11/29/2024 12:00 AM EDT from Last 3 Months Results * US Pelvis w/ TV (12/17/2024 11:22 AM EDT) Anatomical Region Laterality Modality Pelvis Ultrasound 12/18/2024 10:3 4 AM EDT Impressions 12/18/2024 10:45 AM EDT 1. Left ovarian cyst. 2. Normal uterus. TRANSCRIBED BY: ELECTRONICALLY SIGNED BY: Kan Nicholas MD Narrative 12/18/2024 10:45 AM EDT FINDINGS: Uterus 6.9 x 3.1 x 4.5 cm Endometrium 4 mm Right Ovary 2.4 x 1.2 x 1.9 cm Left Ovary 4.1 x 2.6 x 4.2 cm (cyst) The uterus is normal in size and orientation. No worrisome mass lesions are seen. Endometrium appears unremarkable. No fluid is seen within the cul-de-sac. Normal right ovary. Left ovarian 3.4 x 2.5 x 3.6 cm benign, minimally complex thinly septated cyst. No pelvic fluid. Procedure Note Kan Nicholas MD - 12/18/2024 FINDINGS: Uterus 6.9 x 3.1 x 4.5 cm Endometrium 4 mm Right Ovary 2.4 x 1.2 x 1.9 cm Left Ovary 4.1 x 2.6 x 4.2 cm (cyst) The uterus is normal in size and orientation. No worrisome mass lesionsare seen. Endometrium appears unremarkable. No fluid is seen within epbnee-fy-svk. Normal right ovary. Left ovarian 3.4 x 2.5 x 3.6 cm benign, minimallycomplex thinly septated cyst. No pelvic fluid. IMPRESSION: 1. Left ovarian cyst. 2. Normal uterus. TRANSCRIBED BY: ELECTRONICALLY SIGNED BY: Kan Nicholas MD us Zachery Gege DO IM US PROCEDURES Final Result * TBH PREG QUANT HCG (12/07/2024 1:32 PM EDT) Pathologist [facility] HCG QUANTITATIVE <1 mIU/mL TB Comment: 5-50 0.2-1 WEEK 50-500 1-2 WEEKS 100-5,000 2-3 WEEKS 500-10,000 3-4 WEEKS 1,000-50,000 4-5 WEEKS 10,000-100,000 5-6 WEEKS 15,000-200,000 6-8 WEEKS 10,000-100,000 2-3 MONTHS 12/07/2024 1:32 PM EDT 12/07/2024 1:40 PM EDT Narrative CLINISYNC - 12/07/2024 2:[address] [facility] Final Result Performing Organization Address [facility] de Phone Number [facility] * MLR HEMOGLOBIN A1C (12/07/2024 1:32 PM EDT) [facility] GLYCOHEMOGLOBIN A1C 5.5 4.5 - 6.2 % TB Comment: ADA RECOMMENDED LIMIT 4.0 - 6.0 ADA THERAPEUTIC TARGET < 7.0 ACTION SUGGESTED > 7.0 ESTIMATED AVERAGE GLUCOSE 111 mg/dL TB 12/07/2024 1:32 PM EDT 12/07/2024 1:40 PM EDT Narrative CLINISYNC - 12/07/2024 2:46 PM EDT Result [facility] Final Result Performing Organization Address [facility] Co de Phone Number [facility] * ALL THYROXINE (T4) FREE (12/07/2024 1:32 PM EDT) Pathologist [facility] FREE T4 0.99 0.76 - 1.46 ng/dL TB 12/07/2024 1:32 PM EDT 12/07/2024 1:40 PM EDT Narrative CLINISYNC - 12/07/2024 2:46 PM EDT Zachery Gege DO CLINISYNC Final Result Performing Organization Address City/[facility]/ZIP Co de Phone Number [facility] * ALL THYROID STIM HORMONE (12/07/2024 1:32 PM EDT) THYROID STIMULATING HORMONE 1.380 0.358 - 3.740 uIU/mL TBH 12/07/2024 1:32 PM EDT 12/07/2024 1:40 PM EDT Narrative CLINISYNC - 12/07/2024 2:46 PM EDT Zachery Gege DO CLINISYNC Final Result Performing Organization Address [facility] Co de Phone Number [facility] * ALL LUTEINIZING HORMONE (12/07/2024 1:32 PM EDT) LUTEINIZING HORMONE(LH) 5.8 . mIU/mL TBH Comment: Adult Female Range Follicular phase 2.4 - 12.6 Ovulation phase 14.0 - 95.6 Luteal phase 1.0 - 11.4 Postmenopausal 7.7 - 58.5 12/07/2024 1:32 PM EDT 12/07/2024 1:40 PM EDT Narrative CLINISYNC - 12/08/2024 4:07 AM EDT Zachery Gege DO CLINISYNC Final Result Performing Organization Address [facility] Co de Phone Number [facility] * ALL FOLLICLE STIMULATING HORMONE (12/07/2024 1:32 PM EDT) FSH 2.4 . mIU/mL TBH Comment: Adult Female Range Follicular phase 3.5 - 12.5 Ovulation phase 4.7 - 21.5 Luteal phase 1.7 - 7.7 Postmenopausal 25.8 - 134.8 Performed at: [address] [id number] Process Development Manager: Tonny Smith PhD, Phone: [phone] 12/07/2024 1:32 PM EDT 12/07/2024 1:40 PM EDT Narrative CLINISYNC - 12/08/2024 4:07 AM EDT [facility] Ge[facility] DO CLINIS[facility]NC Final Result Performing Organization Address [facility]/ZIP Co de Phone Number [facility] * ALL DHEA SULFATE (12/07/2024 1:32 PM EDT) Pathologist [facility] DHEA-SULFATE 425.0 110.0 - 431.7 ug/dL TB 12/07/2024 1:32 PM EDT 12/07/2024 1:40 PM EDT Narrative CLINISYNC - 12/08/2024 4:07 AM EDT [facility] Gege DO CLINISYNC Final Result Performing Organization Address [facility] Co de Phone Number [facility] * ALL DEHYDROEPIANDROSTERONE (12/07/2024 1:32 PM EDT) Pathologist [facility] DHEA, SERUM 550 31 - 701 ng/dL TB Comment: This test was developed and its performance characteristics determined by [facility]. It has not been cleared or approved by the Food and Drug Administration. Performed at: [address] [id number] Process Development Manager: Jeaneth Roy MD, Phone: [phone] 12/07/2024 1:32 PM EDT 12/07/2024 1:40 PM EDT Narrative CLINISYNC - 12/14/2024 12:07 AM EDT [facility] Gege DO CLINISYNC Final Result Performing Organization Address City/[facility]/ZIP Co de Phone Number [facility] * ALL CBC WITH AUTO DIFF (12/07/2024 1:32 PM EDT) Pathologist [facility] TBH WBC 9.0 4.0 - 11.0 10 3/uL TBH TBH RBC 5.24 4.20 - 5.40 10 6/uL TBH TBH HGB 14.1 12.0 - 16.0 g/dL TBH TBH HCT 43.1 36.0 - 48.0 % TBH TBH MCV 82.3 81.0 - 99.0 fL TBH TBH MCH 26.9 26.7 - 34.0 pg TBH TBH MCHC 32.7 29.9 - 35.2 g/dL TBH TBH RDW 13.1 11.0 - 15.0 % TBH TBH PLT 324 150 - 450 10 3/uL TBH TBH MPV 9.5 9.5 - 13.5 fL TBH NEUTROPHILS PERCENT AUTO 68.0 43.0 - 75.0 % TBH LYMPHOCYTES PERCENT AUTO 24.6 20.5 - 60.0 % TBH MONOCYTES PERCENT AUTO 5.1 1.7 - 12.0 % TBH TBH EO % 1.8 0.9 - 7.0 % TBH BASOPHILS PERCENT AUTO 0.2 0.2 - 2.0 % TBH IMMATURE GRANULOCYTES PCT AUTO 0.3 0.0 - 0.5 % TBH NEUTROPHILS ABSOLUTE AUTO 6.1 1.4 - 6.5 10 3/uL TBH LYMPHOCYTES ABSOLUTE AUTO 2.2 1.2 - 3.8 10 3/uL TBH MONOCYTES ABSOLUTE AUTO 0.5 0.3 - 0.8 10 3/uL TBH TBH EO # 0.2 0.0 - 0.7 10 3/uL TBH BASOPHILS ABSOLUTE AUTO 0.0 0.0 - 0.1 10 3/uL TBH IMMATURE GRANULOCYTES ABS AUTO 0.03 0.00 - 0.03 10 3/uL TBH 12/07/2024 1:32 PM EDT 12/07/2024 1:40 PM EDT Narrative CLINISYNC - 12/07/2024 2:19 PM EDT us Zachery De Guzman DO CLINISYNC Final Result [facility] * ALL ANTI-MULLERIAN HORMONE (12/07/2024 1:32 PM EDT) ANTI-MULLERIAN HORMONE (AMH) 1.54 . ng/mL TBH Comment: For assays employing antibodies, the possibility exists for interference by heterophile antibodies in the samples.1 1.Magdalena Damian Interferences in Immunoassays - still a threat. Clin. Chem. 2000; 46: 8292-7372. This test was developed and its performance characteristics determined by [employer]. It has not been cleared or approved by the Food and Drug Administration. Reference Range: Females 20 - 25y: 1.23 - 11.51 Median 4.70 AMH concentrations of >= 1.06 ng/mL is correlated with a better response to ovarian stimulation, produced more retrievable oocytes and higher odds of live according to Darby et al. Fertility and Sterility. 2010: 94:0326-2298. The current AMH test method correlates with the study method with a slope of 0.94. Females at risk of ovarian hyperstimulation syndrome or polycystic ovarian syndrome (PCOS) may exhibit elevated serum AMH concentrations. AMH levels from PCOS patients may be 2 to 5 fold higher than age-appropriate reference interval values. Granulosa cell tumors of the ovary may secrete AMH along with other tumor markers. Elevated AMH is not specific for malignancy, and the assay should not be used exclusively to diagnose or exclude an AMH-secreting ovarian tumor. Performed at: [facility] [address] [place] [id number] Process Development Manager: Ellis Hurd MD, Phone: [phone] 12/07/2024 1:32 PM EDT 12/07/2024 1:40 PM EDT Narrative CLINISYNC - 12/10/2024 12:09 PM EDT Zachery De Guzman DO CLINISYNC Final Result [facility] * IGP,APTIMA HPV,AGE GDLN (11/29/2024 9:01 AM EDT) Pathologist [facility] AGE GDLN ACOG TESTING Note . [facility] Comment: TESTS RESULT FLAG UNITS REF RANGE LAB Clinician Provided Cytology Information Source.............Cervix;Endocervix No. of containers..01 ThinPrep Vial Age Helena SELF Nalini... FLAG LEGEND: L-Low Normal,H-High Normal,LL-Alert Low,HH-Alert High <-Panic Low,>-Panic High,A-Abnormal,AA-Critical Abnormal Performed at: 01 =G [facility] [address] [facility] [address] Lizzy Winkler MD, IGP, RFX APTIMA HPV ASCU Note . [facility] Comment: TESTS RESULT FLAG UNITS REF RANGE LAB DIAGNOSIS: 02 NEGATIVE FOR INTRAEPITHELIAL LESION OR MALIGNANCY. Specimen adequacy: 02 Satisfactory for evaluation. Endocervical and/or squamous metaplastic cells (endocervical component) are present. Performed by: Don Yepez, Satellite Tv Technician Installer ([facility]) . 02 Note: Note 02 The Pap smear is a screening test designed to aid in the detection of premalignant and malignant conditions of the uterine cervix. It is not a diagnostic procedure and should not be used as the sole means of detecting cervical cancer. Both false-positive and false-negative reports do occur. Test Methodology: Note 02 This liquid based ThinPrep(R) pap test was screened with the use of an image guided system. . 02 The HPV DNA reflex criteria were not met with this specimen result therefore, no HPV testing was performed. FLAG LEGEND: L-Low Normal,H-High Normal,LL-Alert Low,HH-Alert High <-Panic Low,>-Panic High,A-Abnormal,AA-Critical Abnormal Performed at: [address] [phone] Lizzy Winkler MD, Performed at: [facility] [id number] Process Development Manager: Lizzy Winkler MD, Phone: [phone] Performed at: [facility] [id number] Process Development Manager: Lizzy Winkler MD, Phone: [phone] 11/29/2024 9:01 AM EDT 11/29/2024 3:50 PM EDT Narrative CLINISYNC - 12/03/2024 6:08 PM EDT BRUSH-SPATULA CERVIX ENDOCERVIX Zachery Gege DO LAB BLOOD ORDERABLES Final Resul t Performing Organization Address [facility]/ZIP Co de Phone Number CLINISYNC [facility] * Pap Smear (11/29/2024 12:00 AM EDT) Swab Cervical swab / Unknown Zachery Gege DO LAB CYTOLOGY ORDERABLES Final Re sult Performing Organization Address City/[facility] Co de Phone Number EXTERNAL LAB from Last 3 Months Insurance BCBS Care Teams Coffee Urn Attendant Relationship Specialty Start Date End Date Melanie Hollis MD PCP - General Family Medicine 11/28/23 Jessica Acuña DO Family Medicine 11/30/22
--- OUTSIDE RECORDS SUMMARY | 2025-02-11 08:40 | XMS_ITS | Clinical Summary ---
Author Organization [facility] Address [address] [place] [address] [place] [address] Care Team Providers Care Double Backer Name Role Phone Melanie Hollis MD Primary Care Provider [phone] Allergies Active Allergy Reactions Criticality Noted Date [...] Date Diagnosed Date Inappropriate sinus tachycardia 09/06/2022 Family History Medical History Relation Name Comments [...] Description 04/18/2025 2:45 PM EST Office [facility] [address] [place] [phone] Ciro Spicer MD [address] [place] [address] Health Maintenance Due Date Last Done Comments GONORRHEA SCREEN 2000 HEPATITIS C VIRUS SCREENING 2000 HIV SCREENING DISCUSSION 12/16/2015 HPV VACCINE ADOL (1 - 3-dose series) 12/16/2015 HPV VACCINE (1 - 3-dose series) 12/16/2015 CHLAMYDIA SCREEN 2016 CERVICAL CANCER SCREENING DISCUSSION 2021 COVID-19 VACCINE (3 - 2024-2 6 season) 2025 05/11/2021, 02/04/2021 INFLUENZA VACCINE (#1) 2025 , 02/11/2022 TETANUS 04/08/2033 04/08/2023, 04/08/2023, 04/17/2013 HEP B VACCINE Completed 07/12/2001, 02/24/2001, 2000 TDAP (ADULT) Completed 04/08/2023, 04/08/2023, 04/17/2013 PNEUMOCOCCAL VACCINE SERIES Aged Out No longer eligible based on patient's age to complete this topic [facility] Care Teams Double Backer Relationship Specialty Start Date End Date Melanie Hollis MD PCP - General Family Medicine 06/25/21
== END 2025-02-11 08:35 | disposition home or self-care (01) ==
LOC: US 08:34
PROVIDERS: PCP Family Medicine; Visit Provider Nurse Practitioner Family
DX: N92.6 Irregular menstruation, unspecified (principal); N83.202 Unspecified ovarian cyst, left side; N83.209 Unspecified ovarian cyst, unspecified side
CPT/HCPCS: 36415; 76830; 76856; 84144

== ENCOUNTER 2025-02-11 14:19 | Outpatient (OUT) | payer BC, SELFPAY | END 2025-02-11 14:20 | disposition home or self-care (01) | LOC: LAB 02-13 11:47 | PROVIDERS: PCP Family Medicine; Visit Provider Obstetrics & Gynecology | DX: N92.6 Irregular menstruation, unspecified (principal); N83.209 Unspecified ovarian cyst, unspecified side | CPT/HCPCS: 36415; 84144 ==

== ENCOUNTER 2025-03-08 09:32 | Outpatient (OUT) | payer BC, SELFPAY ==
--- OUTSIDE RECORDS SUMMARY | 2025-03-08 09:38 | XMS_ITS | Clinical Summary ---
Author Organization [facility] Address [address] [place] [address] [place] [address] Care Team Providers Care Epic [employer] Name Role Phone Melanie Hollis MD Primary Care Provider [phone] Allergies Active AllergyReactionsCriticalityNoted DateCommentsGadobutrolItching,Wheezing, PjnvbQqdifw66/31/2022 Brief tongue/mouth itching immediately following gadavist injection. Resolved within a few seconds.Coughing and mild wheezing reported by pt after itching resolved. MorphineHives,Itching,Rash04/16/2021 Medications MedicationSigDispense QuantityRefillsLast FilledStart DateEnd DateStatus montelukast 10 MG tablet Indications:Sinus tachycardia,Syncope and collapseTake 1 tablet by mouth daily. Active cetirizine 10 MG tablet Indications:Sinus tachycardia,Syncope and collapseTake 1 tablet by mouth daily. Active albuterol (2.5 MG/3ML) 0.083% inhalation solution Take 3 mL by nebulization daily as needed.01/17/2022ctive albuterol 108 (90 Base) MCG/ACT Aero Soln inhaler Inhale 2 puffs every 4 hours as needed.01/17/2022ctive Metoprolol succinate 50 MG tablet XL Indications:Palpitations,Sinus tachycardiaTAKE 1 TABLET BY MOUTH TWICE A DAY WITH MEALS (INCREASED DOSE) 180 tablet 5Active Active Problems ProblemNoted DateDiagnosed DateInappropriate sinus yjqcnxafqbh25/01/2023 Family History Medical HistoryRelationNameCommentsLipid DisorderFatherDiabetesMotherRelation NameStatusCommentsFatherMother Social History Tobacco UseTypesPacks/DayYears UsedDateSmoking Tobacco: NeverSmokeless Tobacco: NeverAlcohol UseStandard Drinks/WeekCommentsNot Currently0 (1 standard drink = 0.6 oz pure alcohol)CommentsNoSex and Gender InformationValueDate RecordedSex Assigned at BirthNot on fileLegal AvnSwdnge24/18/2022 3:54 PM EST Gender BxymmsdzRxwweu91/15/2022 9:26 AM EDTSexual VkudadwhoykXrhzjrey29/15/2022 9:26 AM EDT Last Filed Vital Signs Vital SignReadingTime TakenCommentsBlood Ingbyncf566/71010/18/2024 1:47 PM EDT Xnoqk496110/18/2024 1:47 PM EDTTemperature--Respiratory Tral663210/18/2024 1:45 PM EDTOxygen Xncayukkos22%10/18/2024 1:45 PM EDTInhaled Oxygen Concentration-- Ssqtze325.8 kg (231 lb)10/18/2024 1:45 PM FKNGishfo415.5 cm (5' 2 )10/18/2024 1:45 PM EDTBody Mass Index42.25010/18/2024 1:45 PM EDT Plan of Treatment DateTypeDepartmentCare Team (Latest Contact Info)Lhazvovkfqv66/11/2025 2:45 PM ESTOffice Visit [facility] [address] [place] [address] Ciro Spicer MD [address] [place] [phone] Health MaintenanceDue DateLast DoneCommentsGONORRHEA MOIFMT70 2000HEPATITIS C VIRUS ASQZKQOJT29/09/2001HIV SCREENING NLVWUQUZHD59/09/2016HPV VACCINE ADOL (1 - 3-dose series)12/16/2015HPV VACCINE (1 - 3-dose series)12/16/2015CHLAMYDIA VIDGZO6612/15/2016CERVICAL CANCER SCREENING UUSDNEOWWI25/09/2022COVID-19 VACCINE ( season)501/07/2021, 02/04/2021INFLUENZA VACCINE (#1) 509/, 02/11/20220008XFOXSZU77/01/90374606/09/2022, 04/08/2023, 04/17/2013HEP B OEYXCLKIbyeyrfdi60/06/2002, 02/24/2001, 2000TDAP (ADULT) Luwnrkngb49/01/2023, 04/08/2023, 04/17/2013PNEUMOCOCCAL VACCINE SERIESAged OutNo longer eligible based on patient's age to complete this topic Insurance Care Teams Team MemberRelationshipSpecialtyStart DateEnd Date Melanie Hollis MD PCP - GeneralFamily Medicine06/25/21
--- OUTSIDE RECORDS SUMMARY | 2025-03-08 09:38 | XMS_ITS | Clinical Summary ---
Author Organization [facility] Address [address] [place] [address] Care Team Providers Care Home Service Advisor Name Role Phone Jessica Acuña DO Unavailable [phone] Melanie Hollis MD Primary Care Provider [phone] Allergies Active AllergyReactionsCriticalityNoted MgsaFhcnooheQnofuscfdwh55/25/2025 GadobutrolCough,Itching,OxciauriEfhddj58/31/2022 Brief tongue/mouth itching immediately following gadavist injection. [...] by pt after itching resolved. Iodinated Contrast Media07/11/2023 Other Reaction(s): contrast dye MorphineHives,Itching,ZrmnDbe2304/16/20219011KgdnxEwvrjyw42/05/2016 Watering eyes, sneezing, congestion PrednisoneGI cajmrnhm02/23/2024Shellfish Protein-Containing Drug ProductsHives 12/31/2024 Medications MedicationSigDispense QuantityRefillsLast FilledStart DateEnd DateStatus montelukast (Singulair) 10 MG tablet Take 10 mg by mouth at bedtime.Active cetirizine (ZyrTEC) 10 MG tablet Take 10 mg by mouth in the morning.Active albuterol (2.5 MG/3ML) 0.083% nebulizer solution Inhale 2.5 mg Daily as needed.01/17/2022ctive albuterol HFA 90 mcg/act inhaler Inhale 2 puffs every 4 (four) hours if needed.01/17/2022ctive metoprolol tartrate (Lopressor) 50 MG tablet Take 50 mg by mouth DailyActive MV-Min-Fe Fum-FA-DHA ( 1 PO) Take by mouthActive ASHWAGANDHA PO Take by mouthActive metFORMIN XR (Glucophage-XR) 500 MG 24 hr tablet Indications:Irregular periods/menstrual cyclesTake 1 tablet (500 mg) by mouth in the evening. Take with meals Do not crush, chew, or split. 30 tablet 5Active letrozole (Femara) 2.5 MG chemo tablet Indications:Irregular periods/menstrual cyclesTake 2 tablets (5 mg total) by mouth Daily for 5 days. 10 tablet Discontinued letrozole (Femara) 2.5 MG chemo tablet Indications:Irregular periods/menstrual cyclesTake 2 tablets (5 mg total) by mouth Daily for 5 days. 10 tablet Expired Encounters DateTypeDepartmentCare HpztYqkyfjzpmxw05/14/2025Telephone [facility] [address] [place] [address] Margoth Shen LPN 02/12/2025Telephone [facility] [address] [place] [address] Margoth Shen LPN 02/11/2025linisync Result Encounter [facility] External Department Unsolicited Moriah Mims NP 01/22/2025Telephone [facility] [address] [place] [address] Margoth Shen LPN 01/22/2025Telephone [facility] [address] [place] [address] Felicitas Weir MA 12/31/2024 8:40 AM EDTOffice Visit [facility] [address] [place] [phone] Zachery De Guzman DO Cyst of ovary, unspecified laterality (Primary Dx); Encounter to discuss test results; Irregular periods/menstrual bcqepg3012/31/2024amboo flowsheet [facility] OBMASHA [address] [place] [phone] Zachery De Guzman DO 12/17/2024 11:00 AM EDTAncillary Procedure [facility] [address] [place] [address] Irregular periods/menstrual pfuqgy8612/17/20249361Jroryd53/01/2025linisync Result Encounter [facility]OMS External Department Unsolicited Zachery De Guzman DO from Last 3 Months Family History Medical HistoryRelationNameCommentsDiabetesPaternal GrandmotherConnie Ania Heart failurePaternal GrandmotherConnie CorradoHypertensionPaternal Grandmother Emma CorradoRelationNameStatusCommentsPaternal GrandmotherConnie Ania Social History Tobacco UseTypesPacks/DayYears UsedDateSmoking Tobacco: NeverSmokeless Tobacco: Never Tobacco Cessation:Counseling Given: Not Answered Alcohol UseStandard Drinks/WeekCommentsYes2 (1 standard drink = 0.6 oz pure alcohol)CommentsNoSex and Gender InformationValueDate RecordedSex Assigned at BirthNot on fileLegal CovIwhgfd93/25/2023 10:30 AM EDTGender IdentityNot on fileSexual OrientationNot on file Last Filed Vital Signs Vital SignReadingTime TakenCommentsBlood Eikgtwno439/7412/31/2024 8:52 AM EDT Mggka696411/21/2023 6:05 PM PVSOfhpydsfvfx46.2 ??C (97.2 ??F)11/21/2023 6:05 PM EDTRespiratory Mawo476711/21/2023 6:05 PM EDTOxygen Pvfjnwfxof60%11/30/2022 10:42 AM EDTInhaled Oxygen Concentration--Luxzbi807 kg (232 lb)12/31/2024 8:52 AM EDT Qbtqsi739.5 cm (5' 2 )12/31/2024 8:52 AM EDTBody Mass Index42.43012/31/2024 8:52 AM EDT Plan of Treatment DateTypeDepartmentCare Team (Latest Contact Info)Sjleoqsyinb89/05/2025 1:00 PM ESTOffice Visit NOMDinorah GLEZ [address] [place] [address] [place] [phone] Zachery De Guzman, DO [address] [place] [address] [place] [address] 12/03/2025 2:00 PM EDTProcedure Visit NOMDinorah GLEZ [address] [place] [address] [place] [phone] Zachery De Guzman, DO [address] [facility] [place] [address] Health MaintenanceDue DateLast DoneCommentsMMR Vaccines (1 of 1 - Standard series)2001DTaP/Tdap/Td Vaccines (1 - Tdap)12/16/2007Varicella Vaccines (1 of 2 - 13+ 2-dose series)2013HPV Vaccines (1 - 3-dose series)12/16/2015 Hepatitis B Vaccines (1 of 3 - 19+ 3-dose series)12/16/2019COVID-19 Vaccine ( - season)501/07/2021, 02/04/2021Influenza Vaccine (#1)2025 02/10/2024, 01/28/2023, 02/11/2022HIB VaccinesAged OutNo longer eligible based on patient's age to complete this topicHepatitis A VaccinesAged OutNo longer eligible based on patient's age to complete this topicIPV VaccinesAged OutNo longer eligible based on patient's age to complete this topicMeningococcal B VaccineAged OutNo longer eligible based on patient's age to complete this topic Meningococcal VaccineAged OutNo longer eligible based on patient's age to complete this topicPneumococcal Vaccine: Pediatrics (0 to 5 Years) and At-Risk Patients (6 to 64 Years)Aged OutNo longer eligible based on patient's age to complete this topicRotavirus VaccinesAged OutNo longer eligible based on patient's age to complete this topic Procedures Procedure NamePriorityDate/TimeAssociated DiagnosisCommentsUS PELVIS W/ EEJGSQYDSHJV57/06/2025 10:16 AM EDT ALL JQHSRUZMWFYYXhlpspy20/06/2025 8:30 AM EDT US PELVIC COMPLETE W/ PUDemkjgt59/11/2025 11:22 AM EDT Irregular periods/menstrual cycles ALL XTZDWZTISWCKMMBGYXEAEWVnqvsjg84/01/2025 1:32 PM EDT ALL ANTI-MULLERIAN SCPXNLMEtmxdey25/01/2025 1:32 PM EDT ALL FOLLICLE STIMULATING XUVHTSZSypdvbs47/01/2025 1:32 PM EDT ALL LUTEINIZING EDHQLFFUedtqqe43/01/2025 1:32 PM EDT ALL DHEA COMDYCBMliijkj50/01/2025 1:32 PM EDT [facility] PREG QUANT ZCEBvwzrlh72/01/2025 1:32 PM EDT ALL THYROID STIM AUZTUASKtuacsv54/01/2025 1:32 PM EDT MLR HEMOGLOBIN V5AIrbfblp05/01/2025 1:32 PM EDT ALL THYROXINE (T4) BKCRUgpravh45/01/2025 1:32 PM EDT ALL CBC WITH AUTO FXJXIxqfhye70/01/2025 1:32 PM EDT from Last 3 Months Results * US PELVIS W/ TRANSVAGINAL (02/11/2025 10:16 AM EDT)Anatomical RegionLaterality ModalityOtherSpecimen (Source)Anatomical Location / LateralityCollection Method / VolumeCollection TimeReceived Time02/11/2025 10:16 AM EDT Narrative 02/11/2025 10:19 AM EDT [facility] ?[address] ? [place], [facility] ? Ultrasound Report ? Signed ? Patient: PRENATT,MAYRA L ?MR#: [id number] ?? : 2000 ?Acct:[id number] ?? Age/Sex: 24 / F ?ADM Date: 02/11/25 ?? Loc: US ? Attending Dr: Moriah Mims ? Ordering Physician: Moriah Mims ?? Date of Service: 02/11/25 ?? Procedure(s): US pelvis w/ transvaginal ?? Accession Number(s): [id number] ? cc: Melanie Hollis M.D.; Moriah Mims ? [facility] ? [address] ? [place] [address] ? Patient Name: ?? MAYRA RODRIGUEZ ? MRN: [facility]:[id number] ? date: 2000 ?Sex: F ?? Assigned Patient Location: US ?? Current Patient Location: US ?? Accession/Order Number: [id number] ?? Exam Date: 02/11/2025 ??08:40 ?Report Date: 02/11/2025 ??10:16 ? At the request of: ?? MORIAH ??FELICITA ? Procedure: ??US pelvis w/ transvaginal ? Pelvic ultrasound. ? Reason for exam: Follow-up left ovarian cyst ? Comparison: Ultrasound 12/17/2024 ? Technique: Transabdominal imaging of the uterus and ovaries was performed. ? Transvaginal imaging of the uterus and ovaries was also obtained. Additional ?? spectral Doppler analysis of the ovaries was also obtained. ? Findings: Uterus measures 8.2 x 3.0 x 4.0 cm. ??No measurable fibroid. ? Endometrium measures 5 mm without focal abnormality. ? Right ovary measures 2.8 x 1.2 x 2.9 cm. ??Left ovary measures 4.7 x 4.3 x 4.2 ?? cm. ??Normal arterial and venous Doppler waveforms. ??Left ovarian cyst ?? measuring 3.4 cm. ? US/US pelvis w/ transvaginal ?? Impression: Left ovarian cyst 3.4 cm. ??No follow-up imaging is recommended. ? Impression dictated by: Kan Richard Jr., D.O. ??02/11/2025 10:16 AM ? Dictation Location: RADIO-PC-22 ? Electronically authenticated by: [id number] ??Y ?? Date: 02/11/2025 ??10:16 ? Dictated By: ?Kan Richard M.D. ? Signed By: ?02/11/259 ? DD/ 1016 ? TD/TT: ? Paper Steamer: Procedure Note Radiology, Radiologist, MD - 02/11/2025 [place] [address] Ultrasound Report Signed Patient: MAYRA RODRIGUEZ LMR#: [id number] : 2000Acct:[id number] Age/Sex: 24 / FADM Date: 02/11/25 Loc: US Attending Dr: Moriah Mims Ordering Physician: Moriah Mism Date of Service: 02/11/25 Procedure(s): US pelvis w/ transvaginal Accession Number(s): [id number] cc: Melanie Hollis M.D.; Moriah Mims The [address] [address] Patient Name: MAYRA RODRIGUEZ MRN: [id number] date: 2000 Sex: F Assigned Patient Location: US Current Patient Location: US Accession/Order Number: [id number] Exam Date: 02/11/2025 08:40 Report Date: 02/11/2025 10:16 At the request of: MORIAH MIMS Procedure: US pelvis w/ transvaginal Pelvic ultrasound. Reason for exam: Follow-up left ovarian cyst Comparison: Ultrasound 12/17/2024 Technique: Transabdominal imaging of the uterus and ovaries was performed. Transvaginal imaging of the uterus and ovaries was also obtained.Additional spectral Doppler analysis of the ovaries was also obtained. Findings: Uterus measures 8.2 x 3.0 x 4.0 cm. No measurable fibroid. Endometrium measures 5 mm without focal abnormality. Right ovary measures 2.8 x 1.2 x 2.9 cm. Left ovary measures 4.7 x 4.3 x4.2 cm. Normal arterial and venous Doppler waveforms. Left ovarian cyst measuring 3.4 cm. US/US pelvis w/ transvaginal Impression: Left ovarian cyst 3.4 cm. No follow-up imaging isrecommended. Impression dictated by: Kan Richard Jr., D.O. 02/11/2025 10:16 AM Dictation Location: [place] [address] Electronically authenticated by: [id number] Y Date: 0:16 Dictated By: Kan Richard M.D. Signed By:02/11/25 1019 DD/ 1016 TD/TT: Paper Steamer: Authorizing ProviderResult TypeResult StatusKristina Felicita NPCLINISYNC IMAGING Final Result * ALL PROGESTERONE (02/11/2025 8:30 AM EDT)ComponentValueRef RangeTest Method Analysis TimePerformed AtPathologist SignaturePROGESTERONE0.5. ng/mLTBH Comment: ? Follicular phase ? 0.1 - ?? 0.9 ? Luteal phase ? 1.8 - ??23.9 ? Ovulation phase ?0.1 - ??12.0 ?First trimester ?11.0 - ??44.3 ?Second trimester ?? 25.4 - ??83.3 ?Third trimester ?58.7 - 214.0 ? Postmenopausal ? 0.0 - ?? 0.1 Performed at: ??CB - [facility] [address] [place], [place] ??[id number] Land Surveyor Manager: Tonny Smith PhD, Phone: ??[phone] Specimen (Source)Anatomical Location / LateralityCollection Method / Volume Collection TimeReceived Time02/11/2025 8:30 AM EDT1 8:43 AM EDT Narrative [facility] - 02/12/2025 4:07 AM EDT Authorizing ProviderResult TypeResult StatusCorey Gege DOCLINISYNCFinal Result Performing OrganizationAddressCity/State/[facility] CodePhone Number JODY [facility] * US Pelvis w/ TV (12/17/2024 11:22 AM EDT)Anatomical RegionLateralityModality PelvisUltrasoundSpecimen (Source)Anatomical Location / LateralityCollection Method / VolumeCollection TimeReceived Time12/18/2024 10:34 AM EDT Impressions 12/18/2024 10:45 AM EDT 1. Left ovarian cyst. 2. Normal uterus. TRANSCRIBED BY: ? ELECTRONICALLY SIGNED BY: Kan Nicholas MD Narrative 12/18/2024 10:45 AM EDT FINDINGS: Uterus ? 6.9 x 3.1 x 4.5 cm Endometrium ??4 mm Right Ovary ?2.4 x 1.2 x 1.9 cm Left Ovary ?4.1 x 2.6 x 4.2 cm ?? (cyst) The uterus is normal in size and orientation. ??No worrisome mass lesions are seen. ??Endometrium appears unremarkable. ??No fluid is seen within the cul-de-sac. ?? Normal right ovary. ??Left ovarian 3.4 x 2.5 x 3.6 cm benign, minimally complex thinly septated ??cyst. ??No pelvic fluid. Procedure Note Kan Nicholas MD - 12/18/2024 FINDINGS: Uterus 6.9 x 3.1 x 4.5 cm Endometrium 4 mm Right Ovary 2.4 x 1.2 x 1.9 cm Left Ovary 4.1 x 2.6 x 4.2 cm (cyst) The uterus is normal in size and orientation. No worrisome mass lesionsare seen. Endometrium appears unremarkable. No fluid is seen within eehmsg-tb-xmn. Normal right ovary. Left ovarian 3.4 x 2.5 x 3.6 cm benign, minimallycomplex thinly septated cyst. No pelvic fluid. IMPRESSION: 1. Left ovarian cyst. 2. Normal uterus. TRANSCRIBED BY: ELECTRONICALLY SIGNED BY: Kan Nicholas MD Authorizing ProviderResult TypeResult StatusCorey Gege [facility] US PROCEDURESFinal Result * [facility] PREG QUANT HCG (12/07/2024 1:32 PM EDT)ComponentValueRef RangeTest Method Analysis TimePerformed AtPathologist SignatureHCG QUANTITATIVE<1mIU/mLTBH Comment: 5-50 ? 0.2-1 WEEK 50-500 ? 1-2 WEEKS 100-5,000 ?2-3 WEEKS 500-10,000 ? 3-4 WEEKS 1,000-50,000 ?? 4-5 WEEKS 10,000-100,000 5-6 WEEKS 15,000-200,000 6-8 WEEKS 10,000-100,000 2-3 MONTHS Specimen (Source)Anatomical Location / LateralityCollection Method / Volume Collection TimeReceived Time12/07/2024 1:32 PM EDT12/07/2024 1:40 PM EDT Narrative [facility] - 12/07/2024 2:46 PM EDT Authorizing ProviderResult TypeResult StatusCorey Gege DOCLINISYNCFinal Result Performing OrganizationAddressCity/State/ZIP CodePhone Number [facility] * MLR HEMOGLOBIN A1C (12/07/2024 1:32 PM EDT)ComponentValueRef RangeTest Method Analysis TimePerformed AtPathologist SignatureGLYCOHEMOGLOBIN A1C5.54.5 - 6.2 %TBHComment: ADA RECOMMENDED LIMIT 4.0 - 6.0 ADA THERAPEUTIC TARGET < 7.0 ACTION SUGGESTED > 7.0 ESTIMATED AVERAGE EKLLZPZ070eb/dLTBHSpecimen (Source)Anatomical Location / LateralityCollection Method / VolumeCollection TimeReceived Time12/07/2024 1:32 PM EDT12/07/2024 1:40 PM EDT Narrative [facility] - 12/07/2024 2:46 PM EDT Authorizing ProviderResult TypeResult StatusCorey Gege DOCLINISYNCFinal Result Performing OrganizationAddressCity/State/ZIP CodePhone Number [facility] * ALL THYROXINE (T4) FREE (12/07/2024 1:32 PM EDT)ComponentValueRef RangeTest MethodAnalysis TimePerformed AtPathologist SignatureFREE T40.990.76 - 1.46 ng/dLTBHSpecimen (Source)Anatomical Location / LateralityCollection Method / VolumeCollection TimeReceived Time12/07/2024 1:32 PM EDT12/07/2024 1:40 PM EDT Narrative [facility] - 12/07/2024 2:46 PM EDT Authorizing ProviderResult TypeResult StatusCorey Gege DOCLINISYNCFinal Result Performing OrganizationAddressty/State/ZIP CodePhone Number [facility] * ALL THYROID STIM HORMONE (12/07/2024 1:32 PM EDT)ComponentValueRef RangeTest MethodAnalysis TimePerformed AtPathologist SignatureTHYROID STIMULATING HORMONE1.3800.358 - 3.740 uIU/mLTBHSpecimen (Source)Anatomical Location / LateralityCollection Method / VolumeCollection TimeReceived Time12/07/2024 1:32 PM EDT12/07/2024 1:40 PM EDT Narrative [facility] - 12/07/2024 2:46 PM EDT Authorizing ProviderResult TypeResult StatusCorey Gege DOCLINISYNCFinal Result Performing OrganizationAddAl[facility]/State/ZIP CodePhone Number [facility] * ALL LUTEINIZING HORMONE (12/07/2024 1:32 PM EDT)ComponentValueRef RangeTest MethodAnalysis TimePerformed AtPathologist SignatureLUTEINIZING HORMONE(LH)5.8 . mIU/mLTBHComment: ? Adult Female ?Range ?Follicular phase ?2.4 - ??12.6 ?Ovulation phase ?14.0 - ??95.6 ?Luteal phase ?1.0 - ??11.4 ?Postmenopausal ?7.7 - ??58.5 Specimen (Source)Anatomical Location / LateralityCollection Method / Volume Collection TimeReceived Time12/07/2024 1:32 PM EDT12/07/2024 1:40 PM EDT Narrative [facility] - 12/08/2024 4:07 AM EDT Authorizing ProviderResult TypeResult StatusCorey Gege DOCLINISYNCFinal Result Performing OrganizationAddressCity/State/ZIP CodePhone Number [facility] * ALL FOLLICLE STIMULATING HORMONE (12/07/2024 1:32 PM EDT)ComponentValueRef RangeTest MethodAnalysis TimePerformed AtPathologist SignatureFSH2.4. mIU/mL TBHComment: ? Adult Female ? Range ?Follicular phase ?3.5 - ??12.5 ?Ovulation phase ? 4.7 - ??21.5 ?Luteal phase ?1.7 - ?? 7.7 ?Postmenopausal ? 25.8 - 134.8 Performed at: ?? - [facility] ??[id number] Land Surveyor Manager: Tonny Smith PhD, Phone: ??[phone] Specimen (Source)Anatomical Location / LateralityCollection Method / Volume Collection TimeReceived Time12/07/2024 1:32 PM EDT12/07/2024 1:40 PM EDT Narrative [facility] - 12/08/2024 4:07 AM EDT Authorizing ProviderResult TypeResult StatusCorey Gege DOCLINISYNCFinal Result Performing OrganizationAddressty/State/ZIP CodePhone Number [facility] * ALL DHEA SULFATE (12/07/2024 1:32 PM EDT)ComponentValueRef RangeTest Method Analysis TimePerformed AtPathologist SignatureDHEA-GCPSEIT780.0110.0 - 431.7 ug/dLTBHSpecimen (Source)Anatomical Location / LateralityCollection Method / VolumeCollection TimeReceived Time12/07/2024 1:32 PM EDT12/07/2024 1:40 PM EDT Narrative [facility] - 12/08/2024 4:07 AM EDT Authorizing ProviderResult TypeResult StatusCorey Gege DOCLINISYNCFinal Result Performing OrganizationAddBradford [facility] Medical Centerty/State/ZIP CodePhone Number [facility] * ALL DEHYDROEPIANDROSTERONE (12/07/2024 1:32 PM EDT)ComponentValueRef RangeTest MethodAnalysis TimePerformed AtPathologist SignatureDHEA, [id number] - 701 ng/dLTBHComment: This test was developed and its performance characteristics determined by [facility]. It has not been cleared or approved by the Food and Drug Administration. Performed at: ?? - [facility] ??[id number] Land Surveyor Manager: Jeaneth Ryo MD, Phone: ??[phone] Specimen (Source)Anatomical Location / LateralityCollection Method / Volume Collection TimeReceived Time12/07/2024 1:32 PM EDT12/07/2024 1:40 PM EDT Narrative [facility] - 12/14/2024 12:07 AM EDT Authorizing ProviderResult TypeResult StatusCorey Gege DOCLINISYNCFinal Result Performing OrganizationAddressCity/State/ZIP CodePhone Number [facility] * ALL CBC WITH AUTO DIFF (12/07/2024 1:32 PM EDT)ComponentValueRef RangeTest MethodAnalysis TimePerformed AtPathologist SignatureTBH WBC9.04.0 - 11.0 10 3/uLTBHTBH RBC5.244.20 - 5.40 10 6/uLTBHTBH HGB14.112.0 - 16.0 g/dLTBHTBH HCT 43.136.0 - 48.0 %TBHTBH MCV82.381.0 - 99.0 fLTBHTBH MCH26.926.7 - 34.0 pgTBH TBH MCHC32.729.9 - 35.2 g/dLTBHTBH RDW13.111.0 - 15.0 %TBHTBH TSH758100 - 450 10 3/uLTBHTBH MPV9.59.5 - 13.5 fLTBHNEUTROPHILS PERCENT AUTO68.043.0 - 75.0 % TBHLYMPHOCYTES PERCENT AUTO24.620.5 - 60.0 %TBHMONOCYTES PERCENT AUTO5.11.7 - 12.0 %TBHTBH EO %1.80.9 - 7.0 %TBHBASOPHILS PERCENT AUTO0.20.2 - 2.0 %TBH IMMATURE GRANULOCYTES PCT AUTO0.30.0 - 0.5 %TBHNEUTROPHILS ABSOLUTE AUTO6.11.4 - 6.5 10 3/uLTBHLYMPHOCYTES ABSOLUTE AUTO2.21.2 - 3.8 10 3/uLTBHMONOCYTES ABSOLUTE AUTO0.50.3 - 0.8 10 3/uLTBHTBH EO #0.20.0 - 0.7 10 3/uLTBHBASOPHILS ABSOLUTE AUTO0.00.0 - 0.1 10 3/uLTBHIMMATURE GRANULOCYTES ABS AUTO0.030.00 - 0.03 10 3/uLTBHSpecimen (Source)Anatomical Location / LateralityCollection Method / VolumeCollection TimeReceived Time12/07/2024 1:32 PM EDT12/07/2024 1:40 PM EDT Narrative [facility] - 12/07/2024 2:19 PM EDT Authorizing ProviderResult TypeResult StatusCorey Gege DOCLINISYNCFinal Result Performing OrganizationAddressCity/State/ZIP CodePhone Number [facility] * ALL ANTI-MULLERIAN HORMONE (12/07/2024 1:32 PM EDT)ComponentValueRef RangeTest MethodAnalysis TimePerformed AtPathologist SignatureANTI-MULLERIAN HORMONE (AMH)1.54. ng/mLTBHComment: For assays employing antibodies, the possibility exists for interference by heterophile antibodies in the samples.1 1.Magdalena Damian ??Interferences in Immunoassays - still a threat. Clin. Chem. 2000; 46: 7555-6766. This test was developed and its performance characteristics determined by [employer]. It has not been cleared or approved by the Food and Drug Administration. Reference Range: Females 20 - 25y: 1.23 - 11.51 Median ??4.70 AMH concentrations of >= 1.06 ng/mL is correlated with a better response to ovarian stimulation, produced more retrievable oocytes and higher odds of live according to Darby et al. ??Fertility and Sterility. 2010: 94:0382-0027. ??The current AMH test method correlates with the study method with a slope of 0.94. Females at risk of ovarian hyperstimulation syndrome or polycystic ovarian syndrome (PCOS) may exhibit elevated serum AMH concentrations. ?? AMH levels from PCOS patients may be 2 to 5 fold higher than age-appropriate reference interval values. Granulosa cell tumors of the ovary may secrete AMH along with other tumor markers. ??Elevated AMH is not specific for malignancy, and the assay should not be used exclusively to diagnose or exclude an AMH-secreting ovarian tumor. Performed at: ??[facility] [address] [place] [id number] Land Surveyor Manager: Ellis Hurd MD, Phone: ??[phone] Specimen (Source)Anatomical Location / LateralityCollection Method / Volume Collection TimeReceived Time12/07/2024 1:32 PM EDT12/07/2024 1:40 PM EDT Narrative [facility] - 12/10/2024 12:09 PM EDT Authorizing ProviderResult TypeResult StatusCorey Gege DOCLINISYNCFinal Result Performing OrganizationAddressCity/State/ZIP CodePhone Number [facility]IN[facility]NC [facility] from Last 3 Months Insurance Care Teams Team MemberRelationshipSpecialtyStart DateEnd Date Melanie Hollis MD PCP - GeneralFamily Medicine11/28/23 Jessica Acuña DO Family Medicine11/30/22
== END 2025-03-08 09:33 | disposition home or self-care (01) ==
PROVIDERS: PCP Family Medicine; Visit Provider Obstetrics & Gynecology
DX: N92.6 Irregular menstruation, unspecified (principal); N83.209 Unspecified ovarian cyst, unspecified side
CPT/HCPCS: 36415; 84144

== ENCOUNTER 2025-04-05 10:11 | Outpatient (OUT) | payer BC, SELFPAY ==
--- OUTSIDE RECORDS SUMMARY | 2025-04-05 10:14 | XMS_ITS | Clinical Summary ---
Author Organization [facility] Address [address] [place] [address] Care Team Providers Care Snap Attacher Name Role Phone Jessica Acuña DO Unavailable [phone] Melanie Hollis MD Primary Care Provider [phone] Allergies Active AllergyReactionsCriticalityNoted VzsmWbdueamcZfgsffaglqh02/25/2025 GadobutrolCough,Itching,JagiptbwKqgfmj10/31/2022 Brief tongue/mouth itching immediately following gadavist injection. [...] Iodinated Contrast Media07/11/2023 Other Reaction(s): contrast dye MorphineHives,Itching,ZpzfGko9604/16/2021 Other Reaction(s): Hives KxnckMznfmzb51/05/2016 Watering eyes, sneezing, congestion Pollen Xqjsjaf2409/11/2015 Other Reaction(s): Other (See Comments) Watering eyes, sneezing, congestion PrednisoneGI arzkwtfv02/23/2024 Other Reaction(s): Diarrhea vomiting and hematuria Shellfish Protein-Containing Drug DycfeunmNwsyu48/25/2025 Medications MedicationSigDispense QuantityRefillsLast FilledStart DateEnd DateStatus montelukast [...] MG 24 hr tablet Indications:Irregular periods/menstrual cyclesTake 2 tablets (1,000 mg) by mouth in the evening. Take with meals Do not crush, chew, or split. 60 tablet 5Active metFORMIN XR (Glucophage-XR) 500 MG 24 hr tablet Indications:Irregular periods/menstrual cyclesTake 1 tablet (500 mg) by mouth in the evening. Take with meals Do not crush, chew, or split. 30 tablet Discontinued(Reorder) letrozole (Femara) 2.5 MG chemo tablet Indications:Irregular periods/menstrual cyclesTake 3 tablets (7.5 mg total) by mouth Daily for 5 days. 15 tablet Expired Encounters DateTypeDepartmentCare WbiaUmjhezotedg23/06/2025Telephone [facility] GLEZ [address] [place] [address] [place] [address] Margoth Shen LPN 03/13/2025 1:00 PM ESTOffice Visit NOMDinorah [place] [address] Zachery De Guzman DO Cyst of left ovary; Irregular periods/menstrual iailgv0003/13/2025amboo flowsheet [facility] [place] [address] Zachery De Guzman DO 5Clinisync Result Encounter NOMS External Department Unsolicited Zachery De Guzman, DO 02/19/2025Telephone [facility] [address] [facility] [facility] [address] LorenaMargoth johnston, CHASSIS WIRER 02/12/2025Telephone [facility] [place] [facility] [address] [address] Lorenavickie Margoth, CHASSIS WIRER 5Clinisync Result Encounter NOMS External Department Unsolicited Moriah Mims, CLINICAL TRIAL SPECIALIST 01/22/2025Telephone [facility] [address] [facility] [address] Lorenavickie Margoth, CHASSIS WIRER 01/22/2025Telephone [facility] [address] [facility] [facility] [address] Felicitas Weir MA from Last 3 Months Family History Medical HistoryRelationNameCommentsDiabetesPaternal GrandmotherConnie Ania Heart failurePaternal GrandmotherConnie CorradoHypertensionPaternal Grandmother Emma CorradoRelationNameStatusCommentsPaternal GrandmotherConnie Ania Social History Tobacco UseTypesPacks/DayYears UsedDateSmoking Tobacco: NeverSmokeless Tobacco: Never Tobacco Cessation:Counseling Given: Not Answered Alcohol UseStandard Drinks/WeekCommentsYes2 (1 standard drink = 0.6 oz pure alcohol)CommentsNoSex and Gender InformationValueDate RecordedSex Assigned at BirthNot on fileLegal MbcLgxhmt15/25/2023 10:30 AM EDTGender IdentityNot on fileSexual OrientationNot on file Last Filed Vital Signs Vital SignReadingTime TakenCommentsBlood Qesguhtn168/7411 1:04 PM EST Kepiy322111/21/2023 6:05 PM KRVAiljusskxos99.2 ??C (97.2 ??F)11/21/2023 6:05 PM EDTRespiratory Uvds4328 6:05 PM EDTOxygen Omldwxhxxl04%11/30/2022 10:42 AM EDTInhaled Oxygen Concentration--Byfbds156 kg (240 lb)03/13/2025 1:04 PM EST Ejmirb149.5 cm (5' 2 )03/13/2025 1:04 PM ESTBody Mass Index43.9105/13/2024 1:04 PM EST Plan of Treatment DateTypeDepartmentCare Team (Latest Contact Info)Pfqshlkyvbb45/28/2026 2:00 PM EDTProcedure Visit [facility] [address] [facility] [phone] Zachery De Guzman, DO [address] [facility] [place] [address] Health MaintenanceDue DateLast DoneCommentsCOVID-19 Vaccine ( season) 501/07/2021, 02/04/2021Influenza Vaccine (#1)510/08/2023, 01/28/2023, 02/11/2022neumococcal Vaccine: Pediatrics (0 to 5 Years) and At- Risk Patients (6 to 64 Years)Aged OutNo longer eligible based on patient's age to complete this topic Procedures Procedure NamePriorityDate/TimeAssociated DiagnosisCommentsALL PROGESTERONE Pvdykyj8103/08/2025 9:48 AM EDT US PELVIS W/ TCBXAKUZLNMY28/06/2025 10:16 AM EDT ALL GMCAOAXCTHADXzruaen92/06/2025 8:30 AM EDT from Last 3 Months Results * ALL PROGESTERONE (03/08/2025 9:48 AM EDT) Only the most recent of2 resultswithin the time period is included. ComponentValueRef RangeTest MethodAnalysis TimePerformed AtPathologist Signature PROGESTERONE0.7. ng/mLTBHComment: ? Follicular phase ? 0.1 - ?? 0.9 ? Luteal phase ? 1.8 - ??23.9 ? Ovulation phase ?0.1 - ??12.0 ?First trimester ?11.0 - ??44.3 ?Second trimester ?? 25.4 - ??83.3 ?Third trimester ?58.7 - 214.0 ? Postmenopausal ? 0.0 - ?? 0.1 Performed at: ??CB - [facility] [address] ??[id number] Bellmaker: Tonny Smith PhD, Phone: ??[phone] Specimen (Source)Anatomical Location / LateralityCollection Method / Volume Collection TimeReceived Time03/08/2025 9:48 AM EDT1 9:53 AM EDT Narrative [facility] - 03/09/2025 9:08 AM EDT Authorizing ProviderResult TypeResult StatusCorey Gege DOCLINISYNCFinal Result Performing OrganizationAddressCity/State/ZIP CodePhone Number [facility] * PELVIS W/ TRANSVAGINAL (02/11/2025 10:16 AM EDT)Anatomical RegionLaterality ModalityOtherSpecimen (Source)Anatomical Location / LateralityCollection Method / VolumeCollection TimeReceived Time02/11/2025 10:16 AM EDT Narrative 02/11/2025 10:19 AM EDT [facility] ?[address] ? [place] [address] ? Ultrasound Report ? Signed ? Patient: PRENATT,MAYRA L ?MR#: [id number] ?? : 2000 ?Acct:[id number] ?? Age/Sex: 24 / F ?ADM Date: 10/06/25 ?? Loc: US ? Attending Dr: Moriah Mims ? Ordering Physician: Moriah Mims ?? Date of Service: 02/11/25 ?? Procedure(s): US pelvis w/ transvaginal ?? Accession Number(s): [id number] ? cc: Melanie Hollis M.D.; Moriah Mims ? [facility] ? [address] ? [place] [address] ? Patient Name: ?? MAYRA RODRIGUEZ ? MRN: [facility]:[id number] ? date: 2000 ?Sex: F ?? Assigned Patient Location: ?? Current Patient Location: US ?? Accession/Order Number: [id number] ?? Exam Date: 02/11/2025 ??08:40 ?Report Date: 02/11/2025 ??10:16 ? At the request of: ?? MORIAH ??CATIA ? Procedure: ??US pelvis w/ transvaginal ? [...] Dictation Location: RADIO-PC-22 ? Electronically authenticated by: [id number] ??Y ?? Date: 02/11/2025 ??10:16 ? Dictated By: ?Kan Richard M.D. ? Signed By: ?02/11/25 1019 ? DD/ 1016 ? TD/TT: ? Server: Procedure Note Radiology, Radiologist, - 02/11/2025 [place] [address] Ultrasound Report Signed Patient: MAYRA RODRIGUEZ LMR#: [id number] : 2000Acct:[id number] Age/Sex: 24 / FADM Date: 02/11/25 Loc: US Attending Dr: Moriah Mims Ordering Physician: Moriah Mims Date of Service: 02/11/25 Procedure(s): US pelvis w/ transvaginal Accession Number(s): [id number] cc: Melanie Hollis M.D.; Moriah Mims [facility] [place] [id number] Patient Name: MAYRA RODRIGUEZ MRN: [id number] date: 2000 Sex: F Assigned Patient Location: US Current Patient Location: US Accession/Order Number: [id number] Exam Date: 02/11/2025 08:40 Report Date: 02/11/2025 [...] Jr., D.O. 02/11/2025 10:16 AM Dictation Location: [place] [address] Electronically authenticated by: [id number] Y Date: 0:16 Dictated By: Kan Richard M.D. Signed By:02/11/25 1019 DD/ 1016 TD/TT: Server: Authorizing ProviderResult TypeResult StatusKrbelén Mims NPCLINISYNC IMAGING Final Result from Last 3 Months Insurance Care Teams Team MemberRelationshipSpecialtyStart DateEnd Date Melanie Hollis MD [address] [place] [address] PCP - GeneralFamily Medicine11/28/23 Jessica Acuña DO [address] [place] [address] Family Medicine11/30/22
--- OUTSIDE RECORDS SUMMARY | 2025-04-05 10:14 | XMS_ITS | Clinical Summary ---
Author Organization [facility] Address [address] [place] [address] [place] [address] Care Team Providers Care Abalone Sheller Name Role Phone Melanie Hollis MD Primary Care Provider [phone] Allergies Active AllergyReactionsCriticalityNoted DateCommentsGadobutrolItching,Wheezing, NkoysIpidow83/31/2022 Brief tongue/mouth itching immediately following gadavist injection. [...] 5Active Active Problems ProblemNoted DateDiagnosed DateInappropriate sinus gnrxuyigecy79/01/2023 Family History Medical HistoryRelationNameCommentsLipid DisorderFatherDiabetesMotherRelation NameStatusCommentsFatherMother Social History Tobacco UseTypesPacks/DayYears UsedDateSmoking Tobacco: NeverSmokeless Tobacco: NeverAlcohol UseStandard Drinks/WeekCommentsNot Currently0 (1 standard drink = 0.6 oz pure alcohol)CommentsNoSex and Gender InformationValueDate RecordedSex Assigned at BirthNot on fileLegal AfxOrrkrt27/18/2022 3:54 PM EST Gender AqseytsyZveoyn73/15/2022 9:26 AM EDTSexual HoiohvvooquHylcqjwg22/15/2022 9:26 AM EDT Last Filed Vital Signs Vital SignReadingTime TakenCommentsBlood Rspcwqth577/71010/18/2024 1:47 PM EDT Ohrct475710/18/2024 1:47 PM EDTTemperature--Respiratory Nhrq448410/18/2024 1:45 PM EDTOxygen Ebyxmwhews79%10/18/2024 1:45 PM EDTInhaled Oxygen Concentration-- Nzexqr707.8 kg (231 lb)10/18/2024 1:45 PM RZFYoxcsb161.5 cm (5' 2 )10/18/2024 1:45 PM EDTBody Mass Index42.25010/18/2024 1:45 PM EDT Plan of Treatment DateTypeDepartmentCare Team (Latest Contact Info)Laqhjidplsf35/11/2025 2:45 PM ESTOffice Visit [facility] [address] [place] [address] Ciro Spicer MD [address] [place] [phone] Health MaintenanceDue DateLast DoneCommentsGONORRHEA PSGTRG25 2000HEPATITIS C VIRUS GSHRMFVBC11/09/2001HIV SCREENING UFMBTOMAJG83/09/2016HPV VACCINE ADOL (1 - 3-dose series)12/16/2015HPV VACCINE (1 - 3-dose series)12/16/2015CHLAMYDIA CBLSTY3012/15/2016CERVICAL CANCER SCREENING TIGGQJTNUZ11/09/2022COVID-19 VACCINE ( season)501/07/2021, 02/04/2021INFLUENZA VACCINE (#1) 509/, 02/11/20229031HIJPKRG40/01/18806306/09/2022, 04/08/2023, 04/17/2013HEP B OVTGJISShhatftvk35/06/2002, 02/24/2001, 2000TDAP (ADULT) Auuahmruj24/01/2023, 04/08/2023, 04/17/2013PNEUMOCOCCAL VACCINE SERIESAged OutNo longer eligible based on patient's age to complete this topic Insurance Care Teams Team MemberRelationshipSpecialtyStart DateEnd Date Melanie Hollis MD PCP - GeneralFamily Medicine06/25/21
== END 2025-04-05 10:12 | disposition home or self-care (01) ==
LOC: LAB 10:11
PROVIDERS: PCP Family Medicine; Visit Provider Obstetrics & Gynecology
DX: N92.6 Irregular menstruation, unspecified (principal); N83.209 Unspecified ovarian cyst, unspecified side
CPT/HCPCS: 36415; 84144

== ENCOUNTER 2025-05-05 12:28 | Outpatient (OUT) | payer BC, SELFPAY ==
--- OUTSIDE RECORDS SUMMARY | 2025-05-05 12:32 | XMS_ITS | Clinical Summary ---
Author Organization [facility] Address [address] [place] [address] Care Team Providers Care Health And Wellness Manager Name Role Phone Jessica Acuña DO Unavailable [phone] Melanie Hollis MD Primary Care Provider [phone] Allergies Active AllergyReactionsCriticalityNoted QknyZjihajgrTjmxspcicql86/25/2025 GadobutrolCough,Itching,IipjfesoHjmqny96/31/2022 Brief tongue/mouth itching immediately following gadavist injection. [...] Iodinated Contrast Media07/11/2023 Other Reaction(s): contrast dye MorphineHives,Itching,OuduPlv7004/16/2021 Other Reaction(s): Hives FkxlwSzyfyvh23/05/2016 Watering eyes, sneezing, congestion Pollen Rwzlqpv0409/11/2015 Other Reaction(s): Other (See Comments) Watering eyes, sneezing, congestion PrednisoneGI mftjylht02/23/2024 Other Reaction(s): Diarrhea vomiting and hematuria Shellfish Protein-Containing Drug AzsltcdkLrmwc25/25/2025 Medications MedicationSigDispense QuantityRefillsLast FilledStart DateEnd DateStatus montelukast [...] not crush, chew, or split. 60 tablet tive letrozole (Femara) 2.5 MG chemo tablet Indications:Irregular periods/menstrual cyclesTake 3 tablets (7.5 mg total) by mouth Daily for 5 days. 15 tablet Expired Encounters DateTypeDepartmentCare PheuVzrmlupxtld78/08/2025Telephone [facility] [place] [address] Margoth Shen LPN 04/05/2025linisync Result Encounter NOMS External Department Unsolicited Zachery De Guzman DO 03/14/2025Telephone [facility] [place] [address] Margoth Shen LPN 03/13/2025 1:00 PM ESTOffice Visit [facility] [place] [address] Zachery De Guzman DO Cyst of left ovary; Irregular periods/menstrual sdmuph0603/13/2025amboo [place] [address] Zachery De Guzman, DO 5Clinisync Result Encounter NOMS External Department Unsolicited Zachery De Guzman, DO 02/19/2025Telephone [facility] [address] [facility] [place] [phone] Margoth Shen, FLY FRAME TENDER 02/12/2025Telephone [facility] [address] [facility] [place] [phone] Margoth Shen, FLY FRAME TENDER 5Clinisync Result Encounter NOMS External Department Unsolicited Moriah Mims NP from Last 3 Months Family History Medical HistoryRelationNameCommentsDiabetesPaternal GrandmotherConnie Ania Heart failurePaternal GrandmotherConnie CorradoHypertensionPaternal Grandmother Emma CorradoRelationNameStatusCommentsPaternal GrandmotherConnie Ania Social History Tobacco UseTypesPacks/DayYears UsedDateSmoking Tobacco: NeverSmokeless Tobacco: Never Tobacco Cessation:Counseling Given: Not Answered Alcohol UseStandard Drinks/WeekCommentsYes2 (1 standard drink = 0.6 oz pure alcohol)CommentsNoSex and Gender InformationValueDate RecordedSex Assigned at BirthNot on fileLegal QutXoiiuf97/25/2023 10:30 AM EDTGender IdentityNot on fileSexual OrientationNot on file Last Filed Vital Signs Vital SignReadingTime TakenCommentsBlood Qrvmcttq101/7411 1:04 PM EST Exooy041711/21/2023 6:05 PM HPORdtuvnbdtaz57.2 ??C (97.2 ??F)11/21/2023 6:05 PM EDTRespiratory Qwfu211411/21/2023 6:05 PM EDTOxygen Pmjridttoc81%11/30/2022 10:42 AM EDTInhaled Oxygen Concentration--Sirtox930 kg (240 lb)03/13/2025 1:04 PM EST Clujew838.5 cm (5' 2 )03/13/2025 1:04 PM ESTBody Mass Index43.9105/13/2024 1:04 PM EST Plan of Treatment DateTypeDepartmentCare Team (Latest Contact Info)Szuxdpcmrok92/28/2026 2:00 PM EDTProcedure Visit [facility] O[facility] [address] [facility] [place] [address] Zachery De Guzman, DO [address] [facility] [place] [address] Health MaintenanceDue DateLast DoneCommentsInfluenza Vaccine (#1)01/07/2025 02/10/2024, 01/28/2023, 2Pneumococcal Vaccine: Pediatrics (0 to 5 Years) and At-Risk Patients (6 to 64 Years)Aged OutNo longer eligible based on patient's age to complete this topic Procedures Procedure NamePriorityDate/TimeAssociated DiagnosisCommentsALL PROGESTERONE Tbodxyq5004/05/2025 10:32 AM EST ALL KNHCUPYVZVHCJggmlfe38/31/2025 9:48 AM EDT US PELVIS W/ BDAPKHJSTTQG02/06/2025 10:16 AM EDT ALL EWFQYCZWLJKGAdmwztm40/06/2025 8:30 AM EDT from Last 3 Months Results * ALL PROGESTERONE (04/05/2025 10:32 AM EST) Only the most recent of3 resultswithin the time period is included. ComponentValueRef RangeTest MethodAnalysis TimePerformed AtPathologist Signature TEYHLFATUCZB29.5. ng/mLTBHComment: ? Follicular phase ? 0.1 - ?? 0.9 ? Luteal phase ? 1.8 - ??23.9 ? Ovulation phase ?0.1 - ??12.0 ?First trimester ?11.0 - ??44.3 ?Second trimester ?? 25.4 - ??83.3 ?Third trimester ?58.7 - 214.0 ? Postmenopausal ? 0.0 - ?? 0.1 Performed at: ??[facility] - [facility] [address] ??[id number] Hand Molder Meat: Tonny Smith PhD, Phone: ??[phone] Specimen (Source)Anatomical Location / LateralityCollection Method / Volume Collection TimeReceived Time04/05/2025 10:32 AM EST04/05/2025 10:34 AM EST Narrative [facility] - 04/06/2025 6:08 AM EST Authorizing ProviderResult TypeResult StatusCorey Gege DOCLINISYNCFinal Result Performing OrganizationAddressCity/State/ZIP CodePhone Number [facility]IN[facility] TB * US PELVIS W/ TRANSVAGINAL (02/11/2025 10:16 AM EDT)Anatomical RegionLaterality ModalityOtherSpecimen (Source)Anatomical Location / LateralityCollection Method / VolumeCollection TimeReceived Time02/11/2025 10:16 AM EDT Narrative 02/11/2025 10:19 AM EDT [facility] ?[address] ? [place] [address] ? Ultrasound Report ? Signed ? Patient: PRENATT,MAYRA L ?MR#: [id number] ?? : 2000 ?Acct:[id number] ?? Age/Sex: 24 / F ?ADM Date: 02/11/25 ?? Loc: US ? Attending Dr: Moriah Mims ? Ordering Physician: Moriah Mims ?? Date of Service: 02/11/25 ?? Procedure(s): US pelvis w/ transvaginal ?? Accession Number(s): [id number] ? cc: Melanie Hollis M.D.; Moriah Mims ? [facility] ? [address] ? [place] [address] ? Patient Name: ?? MAYRA RODRIGUEZ ? MRN: [facility]:[id number] ? date: 2000 ?Sex: F ?? Assigned Patient Location: ?? Current Patient Location: US ?? Accession/Order Number: [id number] ?? Exam Date: 02/11/2025 ??08:40 ?Report Date: [...] ? Impression dictated by: Kan Richard Jr., D.OJareth ??02/11/2025 10:16 AM ? Dictation Location: RADIO-PC-22 ? Electronically authenticated by: [id number] ??Y ?? Date: 02/11/2025 ??10:16 ? Dictated By: ?Kan Richard M.D. ? Signed By: ?02/11/25 1019 ? DD/ 1016 ? TD/TT: ? Hot Die Press Feeder: Procedure Note Radiology, Radiologist, MD - 02/11/2025 [place] [address] Ultrasound Report Signed Patient: MAYRA RODRIGUEZ LMR#: [id number] : 2000Acct:[id number] Age/Sex: 24 / FADM Date: 02/11/25 Loc: US Attending Dr: Moriah Mims Ordering Physician: Moriah Mims Date of Service: 02/11/25 Procedure(s): US pelvis w/ transvaginal Accession Number(s): [id number] cc: Melanie Hollis M.D.; Moriah Mims [place] [address] Patient Name: MAYRA RODRIGUEZ MRN: [id number] date: 2000 Sex: F Assigned Patient Location: Current Patient Location: Accession/Order Number: [id number] Exam Date: 02/11/2025 08:40 Report Date: 02/11/2025 [...] Jr., D.O. 02/11/2025 10:16 AM Dictation Location: [place] [address] Electronically authenticated by: [id number] Y Date: 0:16 Dictated By: Kan Richard M.D. Signed By:02/11/25 1019 DD/ 1016 TD/TT: Hot Die Press Feeder: Authorizing ProviderResult TypeResult StatusMoriah Mims NPCLINISYNC IMAGING Final Result from Last 3 Months Insurance Care Teams Team MemberRelationshipSpecialtyStart DateEnd Date Melanie Hollis MD [address] [place] [phone] PCP - GeneralFamily Medicine11/28/23 Jessica Acuña DO [address] [place] [address] Family Medicine11/30/22
--- OUTSIDE RECORDS SUMMARY | 2025-05-05 12:32 | XMS_ITS | Encounter Summary ---
Author Organization [facility] enter Address [address] [place] [address] Care Team Providers Care Docking Saw Operator Name Role Phone Melanie Hollis MD Primary Care Provider [phone] Reason for Visit * ReasonCommentsMedication Refill Encounter Details DateTypeDepartmentCare Team (Latest Contact Info)Cxozlzsatxi60/25/2025Refill [facility] [address] [place] [address] Padmini Dennis, STRADDLE CARRIER OPERATOR-SECURITIES AND REAL ESTATE DIRECTOR [address] [facility] [address] [place] [address] Palpitations; Sinus tachycardia Social History Tobacco UseTypesPacks/DayYears UsedDateSmoking Tobacco: NeverSmokeless Tobacco: NeverAlcohol UseStandard Drinks/WeekCommentsNot Currently0 (1 standard drink = 0.6 oz pure alcohol)CommentsNoSex and Gender InformationValueDate RecordedSex Assigned at BirthNot on fileLegal MdcHlsnnk94/18/2022 3:54 PM EST Gender DyfzvbjzYztcvl36/15/2022 9:26 AM EDTSexual LlzhduizgztMcjmhzil74/15/2022 9:26 AM EDTdocumented as of this encounter Plan of Treatment DateTypeDepartmentCare Team (Latest Contact Info)Urpjvagsggf44/11/2026 3:15 PM EDTOffice Visit [facility] [address] [place] [address] Ciro Spicer MD [address] [place] [phone] documented as of this encounter Visit Diagnoses Diagnosis Palpitations Sinus tachycardia Other specified cardiac dysrhythmias documented in this encounter Care Teams Team MemberRelationshipSpecialtyStart DateEnd Date Melanie Hollis MD PCP - GeneralFamily Medicine06/25/21documented as of this encounter
--- OUTSIDE RECORDS SUMMARY | 2025-05-05 12:32 | XMS_ITS | Clinical Summary ---
Author Organization [facility] Address [address] [place] [address] [place] [address] Care Team Providers Care Block Machine Operator Name Role Phone Melanie Hollis MD Primary Care Provider [phone] Allergies Active AllergyReactionsCriticalityNoted SibxMsfumgvwDzgwbhwbbyeGxhqb42/11/2025 GadobutrolItching,Wheezing,KmupvGjwyfa27/31/2022 Brief tongue/mouth itching immediately following gadavist injection. [...] WITH MEALS (INCREASED DOSE) 180 tablet 5Active metFORMIN-XR 500 MG Tab SR 24 HR Take 2 tablets by mouth 2 times daily.5Active Letrozole 2.5 MG tablet Take 3 tablets by mouth daily.5Active Active Problems ProblemNoted DateDiagnosed DateInappropriate sinus rvyvyndqctz80/01/2023 Encounters DateTypeDepartmentCare PgjiOulujkthkev58/25/2025Refmagr[facility] hospital [facility] [address] [place] [phone] Padmini Dennis APRN-CHANDRAKANT Palpitations; Sinus vrqvvjjqaba58/11/2025 2:45 PM ESTOffice Visit [facility] [address] [place] [phone] Ciro Spicer MD Palpitations (Primary Dx)from Last 3 Months Family History Medical HistoryRelationNameCommentsLipid DisorderFatherDiabetesMotherRelation NameStatusCommentsFatherMother Social History Tobacco UseTypesPacks/DayYears UsedDateSmoking Tobacco: NeverSmokeless Tobacco: NeverAlcohol UseStandard Drinks/WeekCommentsNot Currently0 (1 standard drink = 0.6 oz pure alcohol)CommentsNoSex and Gender InformationValueDate RecordedSex Assigned at BirthNot on fileLegal CtjDznnbz59/18/2022 3:54 PM EST Gender KpltnbduJqwgxp38/15/2022 9:26 AM EDTSexual MjljsedpqtyBsweackn38/15/2022 9:26 AM EDT Last Filed Vital Signs Vital SignReadingTime TakenCommentsBlood Eboiyyrh941/7304/18/2025 3:03 PM EST Vtobw01846/11/2025 3:03 PM ESTTemperature--Respiratory Tgru2821 3:01 PM ESTOxygen Rbnyqjwrtt74%04/18/2025 3:01 PM ESTInhaled Oxygen Concentration-- Nzjsfu261.6 kg (235 lb)04/18/2025 3:01 PM AXUVmiiro192.5 cm (5' 2 )04/18/2025 3:01 PM ESTBody Mass Index42.9804/18/2025 3:01 PM EST Plan of Treatment DateTypeDepartmentCare Team (Latest Contact Info)Rcztzdvomgx01/11/2026 3:15 PM EDTOffice Visit [facility] [address] [place] [phone] Ciro Spicer MD [address] [place] [phone] Health MaintenanceDue DateLast DoneCommentsGONORRHEA LYYRRE48 2000HEPATITIS C VIRUS RPJMZKPRR37/09/2001HIV SCREENING CMFYKWZSSO47/09/2016HPV VACCINE ADOL (1 - 3-dose series)12/16/2015HPV VACCINE (1 - 3-dose series)12/16/2015CHLAMYDIA TEXMWF2512/15/2016CERVICAL CANCER SCREENING GGVYXGIEDS29/09/2022COVID-19 VACCINE ( season)501/07/2021, 02/04/2021INFLUENZA VACCINE (#1) 509/, 02/11/20223685UPYZWWM63/01/420661/05/2022, 04/08/2023, 04/17/2013HEP B IAEOUDEGrifddsyb10/06/2002, 02/24/2001, 2000TDAP (ADULT) Jllhvcixj48/01/2023, 04/08/2023, 04/17/2013PNEUMOCOCCAL VACCINE SERIESAged OutNo longer eligible based on patient's age to complete this topic Insurance Care Teams Team MemberRelationshipSpecialtyStart DateEnd Date Melanie Hollis MD [facility] - [facility]06/25/21
== END 2025-05-05 12:29 | disposition home or self-care (01) ==
LOC: LAB 12:28
PROVIDERS: PCP Family Medicine; Visit Provider Obstetrics & Gynecology
DX: N92.6 Irregular menstruation, unspecified (principal); N83.209 Unspecified ovarian cyst, unspecified side
CPT/HCPCS: 36415; 84144